=== PATIENT | male | born 1945 | race Two or more races ===

== ENCOUNTER 2018-04-03 00:13 | Inpatient (IN) | payer MEDICARE, MEDICAID ==
[~2018-04-03] VITALS: Ht 165.1 cm; Wt 97.5 kg
[2018-04-03] VITALS (7 sets, daily range): BP systolic 100–119; BP diastolic 58–75
--- NOTE | 2018-04-03 00:33 | NUR ---
73 yo male C/O Abd pain, difuse like non radiating. Patient ambulated to er bed,patient gowned, placed on cardiac cath technician. patient SPO2 is noted to be in the low 90's, MD Esquivel notified. patient skin warm and dry, resp even and unlabored. awaiting orders from provider
[2018-04-03 00:53] LABS: BASOPHILS % (AUTO) 0.2 % (0.0-2.0); EOSINOPHILS % (AUTO) 0.9 % (0.0-6.0); HEMATOCRIT 52 % (39-51); HEMOGLOBIN 17.5 g/dL (13.5-17.5); LYMPHOCYTES # (AUTO) 1.3 /CMM (0.8-4.8); LYMPHOCYTES % (AUTO) 16.2 % (20.0-44.0); MEAN CORPUSCULAR HEMOGLOBIN 32 PG (26.0-33.0); MEAN CORPUSCULAR HGB CONC 34 g/dl (31.0-36.0); MEAN CORPUSCULAR VOLUME 94 fL (80-96); MONOCYTES # (AUTO) 0.2 /CMM (0.1-1.30); MONOCYTES % (AUTO) 2.9 % (2.0-12.0); NEUTROPHILS # (AUTO) 6.3 /CMM (1.8-8.9); NEUTROPHILS % (AUTO) 79.8 % (43.0-81.0); PLATELET COUNT (AUTO) 145 /CMM (150-450); RDW COEFFICIENT OF VARIATION 13.4 (11.5-15.0); RED BLOOD CELL COUNT(AUTO) 5.53 MIL/uL (4.5-6.0); WHITE BLOOD COUNT (AUTO) 7.9 K/uL (4.3-11.0)
[2018-04-03 01:03] LABS: CALCIUM, SERUM 8.8 mg/dL (8.5-10.1); CARBON DIOXIDE 33 mmol/L (21-32); CHLORIDE 97 mmol/L (98-107); GLUCOSE 278 mg/dL (74-106); POTASSIUM 3.8 mmol/L (3.5-5.1); SODIUM SERUM 134 mmol/L (136-145); UREA NITROGEN, BLOOD 23 mg/dL (7-18)
[2018-04-03 01:04] LABS: CALCIUM, SERUM 8.8 mg/dL (8.5-10.1); CARBON DIOXIDE 33 mmol/L (21-32); CHLORIDE 97 mmol/L (98-107); GLUCOSE 284 mg/dL (74-106); POTASSIUM 3.8 mmol/L (3.5-5.1); SODIUM SERUM 137 mmol/L (136-145); UREA NITROGEN, BLOOD 21 mg/dL (7-18)
[2018-04-03 01:10] LABS: ALANINE AMINOTRANSFERASE 27 U/L (12-78); ALBUMIN 3.5 g/dL (3.4-5.0); ALKALINE PHOSPHATASE 96 U/L (46-116); ASPARTATE AMINOTRANSFERASE 18 U/L (15-37); BILIRUBIN,DIRECT 0.1 mg/dL (0.0-0.2); BILIRUBIN,TOTAL 0.6 mg/dL (0.2-1.0); LIPASE 197 U/L (73-393); TOTAL PROTEIN, SERUM 7.8 g/dL (6.4-8.2)
[2018-04-03 01:11] LABS: TROPONIN I < 0.017 ng/mL (0.00-0.056)
[2018-04-03 01:18] LABS: INR 1.02 (0.87-1.13)
--- NOTE | 2018-04-03 01:35 | NUR ---
TELE 304-2
[2018-04-03 02:14] LABS: APPEARANCE,URINE CLEAR (CLEAR); BILIRUBIN,URINE 1+ (NEGATIVE); BLOOD, URINE NEGATIVE Ery/uL (NEGATIVE); COLOR,URINE DARK YELLO (YELLOW); KETONES,URINE TRACE (NEGATIVE); LEUKOCYTE ESTERASE ,URINE NEGATIVE (NEGATIVE); NITRITE, URINE NEGATIVE (NEGATIVE); PROTEIN,URINE 1+ mg/dl (NEGATIVE); UGLUCOSE 2+ mg/dL (NEGATIVE); UROBILINOGEN,URINE 0.2 EU/dL (0.2)
[2018-04-03 02:20] LABS: BACTERIA,URINE Few /HPF (None Seen); RBC,URINE 0-2 /HPF (0-2); SQUAMOUS EPITHELIAL CELL,UR Rare /HPF (None Seen); WBC,URINE 0-2 /HPF (0-3)
[2018-04-03 02:21] LABS: MUCUS,URINE Moderate /LPF (None Seen)
--- NOTE | 2018-04-03 02:51 | NUR ---
report given to jessica grijalva for eliza
--- NOTE | 2018-04-03 03:15 | NUR ---
MS/SAFETY ATTENDANT ADMITTING NOTE Patient was admitted from the ED to our unit in stable condition. Vital signs were BP 119/75, HR 83 bpm, O2 Sat 97% on 4L O2 NC, and Temp 97.9 F. Initial physical assessment was completed. Patient was made comfortable in bed. Past medical history obtained. Patient is Farsi speaking but understands and speaks Mozambican well enough to have a conversation. Patient is AAOx4 and shows no signs of acute distress. Patient rates abdominal pain at 4/10, but states he is no longer nauseous. SL 18g IV is in the right AC intact and patent. Belongings List acknowledged and signed by patient. Patient was oriented to room and educated radiation control technician light. Patient has no immediate needs or concerns at this time. Will continue to monitor.
--- NOTE | 2018-04-03 03:30 | NUR ---
MS RN NOTE - Refused pictures Patient refused having pictures taken of his skin, despite explanation and education. Patient is fully oriented x4; he is Farsi-speaking but carries on a conversation in Maldivian well. Patient became slightly agitated and did not want pictures taken.
[2018-04-03] MEDS ORDERED: ASPI-1169 PO (03:39)
[2018-04-03] MEDS ORDERED: HYDROCODONE/APAP 5/325MG 1 EACH TABLET PO PRN (04:00)
[2018-04-03] MEDS ORDERED: ACETAMINOPHEN 325 MG TABLET PO PRN (04:00)
[2018-04-03] MEDS ORDERED: MAG HYDROX/AL HYDROX/SIMETH 30 ML UDC PO PRN (04:00)
[2018-04-03] MEDS ORDERED: Z GUARD REMEDY 2 OZ OINT TP PRN (04:00)
[2018-04-03] MEDS ORDERED: ONDANSETRON HCL/PF 4 MG/2 ML VIAL IVP PRN (04:00)
[2018-04-03] MEDS ORDERED: ZOLPIDEM TARTRATE 5 MG TABLET PO PRN (04:00)
[2018-04-03] MEDS: ENOXAPARIN SODIUM 40 MG/0.4 ML DISP.SYRIN SQ SCH (05:08)
[2018-04-03 06:56] LABS: CHOLESTEROL 199 mg/dL (<200); HDL CHOLESTEROL 34 mg/dL (40-60); LDL 121 mg/dL (0-99); TRIGLYCERIDES 279 mg/dL (30-150)
[2018-04-03 06:59] LABS: CALCIUM, SERUM 8.2 mg/dL (8.5-10.1); CARBON DIOXIDE 34 mmol/L (21-32); CHLORIDE 96 mmol/L (98-107); CREATININE 0.9 mg/dL (0.6-1.3); GLUCOSE 334 mg/dL (74-106); MAGNESIUM 1.8 mg/dL (1.8-2.4); POTASSIUM 4.4 mmol/L (3.5-5.1); SODIUM SERUM 136 mmol/L (136-145); UREA NITROGEN, BLOOD 24 mg/dL (7-18)
--- NOTE | 2018-04-03 07:05 | NUR ---
MS RN CLOSING NOTE Patient is AAOx4, breathing on 4L O2 NC with no SOB, and no signs of acute distress. Patient slept intermittently overnight but had no complications and remains in stable condition. Bed is low/locked, two side rails up, and call olmstead within reach. All patient needs addressed this shift and order carried out. Patient care endorsed to day shift nurse.
--- NOTE | 2018-04-03 07:10 | NUR ---
RN NOTES PT IS LAYING DOWN IN BED, SLEEPING COMFORTABLY. PT ON 4L O2, RESPIRATIONS ARE EVEN AND UNLABORED. IV ON RAC INTACT AND SL. TELE MONITOR SHOWS SR 74. NO SIGNS OF DISTRESS NOTED. SAFETY MEASURES ARE IN PLACE, CALL LIGHT IS IN REACH. WILL CONTINUE TO MONITOR.
[2018-04-03 08:41] LABS: ABG BASE EXCESS 5.8 mmol/L; ABG OXYGEN SATURATION 94.5 % (92.0-98.5); ABG PCO2 72.8 mmHg (35.0-45.0); ABG PH 7.304 (7.350-7.450); ABG PO2 79.5 mmHg (75.0-100.0); AaDO2 34.2 mmHg; COHb 1.3 % (0.5-1.5); MetHb 0.7 % (0.0-1.5); O2Hb 92.6 % (94.0-97.0); SITE, ABG Right Radial; VENT MODE, BG N/C
[2018-04-03] MEDS: FUROSEMIDE 40 MG/4 ML VIAL IV SCH ×2 (08:58→11:52)
[2018-04-03] MEDS: ASPIRIN 81 MG TAB.CHEW PO SCH (08:58)
[2018-04-03] MEDS ORDERED: DEXTROSE 50%-WATER 50 ML DISP.SYRIN IV PRN (09:30)
[2018-04-03 10:54] LABS: THYROID STIMULATING HORMONE 1.225 uIU/mL (0.358-3.74)
[2018-04-03] MEDS: BLOOD SUGAR DIAGNOSTIC 1 EACH STRIP IN SCH ×3 (11:52→21:29)
[2018-04-03] MEDS: INSULIN REGULAR, HUMAN 100 UNIT/ML 3 ML VIAL SQ PRN ×2 (11:56→21:43)
[2018-04-03] MEDS ORDERED: INSULIN REGULAR, HUMAN 100 UNIT/ML 3 ML VIAL SQ SCH (12:00)
[2018-04-03] MEDS ORDERED: BLOOD SUGAR DIAGNOSTIC 1 EACH STRIP IN SCH (12:00)
--- NOTE | 2018-04-03 13:57 | NUR ---
WOUND CARE CONSULT PATIENT SEEN AND SKIN INTEGRITY ASSESSMENT DONE. PLEASE SEE MANAGER SCIENTIFIC ASSESSMENT IN PCS. PATIENT WITH VALORIE OF 20. ALL PRESSURE ULCER PREVENTION MEASURES NOTED TO BE IN PLACE PER PLAN OF CARE. WILL SEE PATIENT PRN. Addendum: 04/03/18 at 1403 by ZEYNEP SHEFFIELD RN Amended: Links added.
[2018-04-03] MEDS ORDERED: FLUOCINONIDE 0.05% CREAM 60 GM TUBE TP SCH (17:30)
[2018-04-03] MEDS ORDERED: FLUOCINONIDE 0.05% CREAM 15 GM TUBE TP SCH (17:30)
[2018-04-03] MEDS ORDERED: diphenhydrAMINE HCL ELIX 25 MG/10 ML UDC PO PRN (18:00)
--- NOTE | 2018-04-03 18:42 | NUR ---
RN NOTES PT IS LAYING DOWN IN BED, AWAKE AND ALERT. PT ON RA, RESPIRATIONS ARE EVEN AND UNLABORED. IV ON RAC INTACT AND SL. PT WILL SWITCH TO ROOM 323-1 FOR COMFORT. CARDIOPULMONARY TECHNOLOGIST SHOWS SR. ALL MEDS WERE GIVEN ORDERED. NO SIGNS OF DISTRESS NOTED. SAFETY MEASURES ARE IN PLACE, CALL LIGHT IS IN REACH. WILL ENDORSE TO TEST PULLER RN FOR CONTINUITY OF CARE.
--- NOTE | 2018-04-03 19:04 | NUR ---
Met with patient, he speaks Farsi and Uzbek. Stated he lives alone. He has a son and relatives but patient refused to provide their contact info. He is ambulatory and independent with adl's, he drove himself to the hospital and parked his car by the ER . Has no DME or homehealth reported. He plan to return home once discharge. Addendum: 04/03/18 at 1906 by CHANDRA ERIC RN Amended: Links added.
--- NOTE | 2018-04-03 19:20 | NUR ---
RN OPENING NOTES RECEIVED PATIENT IN BED, ALERT AND ORIENTED X 3, RECEIVING O2 VIA NC @4LPM, NO SOB NOTED, BREATHING EVEN AND UNLABORED, IN NO ACUTE DISTRESS. PT VERBALIZED THAT HE IS HAVING HEARTBURN AND DISCOMFORT IN THE EPIGASTRIC AREA. DENIES CHEST PAIN, DENIES NAUSEA AT THIS TIME. ALL PATIENT'S NEEDS ATTENDED TO AT THIS TIME, PLACED BED IN LOW POSITION, CALL LIGHT WITHIN EASY REACH. WILL CONTINUE TO MONITOR PT. Addendum: 04/03/18 at 1951 by ROBBIN LOPEZ RN PT ON TELE MONITORING WITH SR @ 70-80s AT THIS TIME.
[2018-04-03] MEDS ORDERED: ATORVASTATIN 40 MG TABLET PO SCH (22:00)
[2018-04-04] VITALS: BP 100/62
[2018-04-04 04:00] VITALS: BP 112/67
[2018-04-04 06:37] LABS: BASOPHILS % (AUTO) 0.1 % (0.0-2.0); EOSINOPHILS % (AUTO) 2.7 % (0.0-6.0); HEMATOCRIT 50 % (39-51); HEMOGLOBIN 17.1 g/dL (13.5-17.5); LYMPHOCYTES # (AUTO) 2.7 /CMM (0.8-4.8); LYMPHOCYTES % (AUTO) 30.6 % (20.0-44.0); MEAN CORPUSCULAR HEMOGLOBIN 32 PG (26.0-33.0); MEAN CORPUSCULAR HGB CONC 34 g/dl (31.0-36.0); MEAN CORPUSCULAR VOLUME 94 fL (80-96); MONOCYTES # (AUTO) 0.8 /CMM (0.1-1.30); MONOCYTES % (AUTO) 9.3 % (2.0-12.0); NEUTROPHILS # (AUTO) 5.1 /CMM (1.8-8.9); NEUTROPHILS % (AUTO) 57.3 % (43.0-81.0); PLATELET COUNT (AUTO) 152 /CMM (150-450); RDW COEFFICIENT OF VARIATION 13.3 (11.5-15.0); RED BLOOD CELL COUNT(AUTO) 5.38 MIL/uL (4.5-6.0); WHITE BLOOD COUNT (AUTO) 8.9 K/uL (4.3-11.0)
[2018-04-04] MEDS: BLOOD SUGAR DIAGNOSTIC 1 EACH STRIP IN SCH (06:38)
[2018-04-04] MEDS: INSULIN REGULAR, HUMAN 100 UNIT/ML 3 ML VIAL SQ PRN (06:41)
--- NOTE | 2018-04-04 06:54 | NUR ---
BINDERY TECHNICIAN CLOSING NOTES PATIENT IN BED, ASLEEP BUT EASILY AROUSABLE, NO SOB NOTED THROUGHOUT THE SHIFT. NO C/O PAIN AT THIS TIME, NO EPISODE OF N/V NOTED. ALL PATIENT'S NEEDS ATTENDED TO. PT ABLE TO AMBULATE TO BATHROOM WITH STEADY GATE. PLACED BED IN LOW POSITION, LOCKED IN PLACE AND CALL LIGHT PLACED WITHIN EASY REACH. PT ON TELE MONITORING AT SINUS RHYTHM. WILL ENDORSE TO AM SHIFT NURSE FOR CONTINUITY OF CARE.
[2018-04-04 07:07] LABS: ALANINE AMINOTRANSFERASE 29 U/L (12-78); ALBUMIN 3.4 g/dL (3.4-5.0); ALKALINE PHOSPHATASE 90 U/L (46-116); ASPARTATE AMINOTRANSFERASE 20 U/L (15-37); BILIRUBIN,TOTAL 0.6 mg/dL (0.2-1.0); CALCIUM, SERUM 8.6 mg/dL (8.5-10.1); CHLORIDE 94 mmol/L (98-107); CREATININE 0.9 mg/dL (0.6-1.3); GLUCOSE 230 mg/dL (74-106); PHOSPHORUS 4.2 mg/dL (2.5-4.9); POTASSIUM 3.7 mmol/L (3.5-5.1); SODIUM SERUM 134 mmol/L (136-145); TOTAL PROTEIN, SERUM 7.7 g/dL (6.4-8.2); UREA NITROGEN, BLOOD 24 mg/dL (7-18)
[2018-04-04 07:11] LABS: CARBON DIOXIDE 42 mmol/L (21-32)
--- NOTE | 2018-04-04 07:14 | NUR ---
RN NOTES RECEIVED CALL FROM LAB, SPOKE WITH KARON, PER KARON PTS' CO2 = 42. PAGED HOSPITALIST. WILL ENDORSE TO AM SHIFT NURSE.
[2018-04-04 07:19] LABS: TROPONIN I < 0.017 ng/mL (0.00-0.056)
--- NOTE | 2018-04-04 07:52 | NUR ---
GLOBAL COORDINATOR OPENING NOTE RECEIVED BEDSIDE SBAR REPORT ON THE PATIENT. PATIENT IS A/O X4, ASLEEP, EASILY AWAKEN IN BED. BED IS LOCKED IN LOWEST POSITION, SIDE RAILS UP X2, CALL LIGHT WITHIN REACH. EDUCATED THE PATIENT TO USE THE CALL LIGHT TO CALL FOR ASSISTANCE, AND PATIENT VERBALIZED UNDERSTANDING. DENIES PAIN/DISCOMFORT AT THIS TIME. CHEST RISING EQUALLY/BILATERALLY. EXTERNAL MONITOR READING SB 56. WILL CONTINUE TO ASSESS/MONITOR THROUGHOUT THE SHIFT.
[2018-04-04 08:00] VITALS: BP 116/51
[2018-04-04] MEDS ORDERED: LOSARTAN POTASSIUM 50 MG TABLET PO SCH (09:00)
[2018-04-04 09:40] VITALS: BP 116/51
[2018-04-04] MEDS: ASPIRIN 81 MG TAB.CHEW PO SCH (09:40)
[2018-04-04] MEDS: ENOXAPARIN SODIUM 40 MG/0.4 ML DISP.SYRIN SQ SCH (09:42)
--- NOTE | 2018-04-04 10:51 | NUR ---
SBAR report given to Dariusz ROBINS for [place]
--- NOTE | 2018-04-04 11:00 | NUR ---
RN NOTES PATIENT A/OX3, PATIENT UNCOOPERATIVE AND KEPT SAYING HE WANTS TO GO HOME, EXPLAINED TO THE PATIENT TO WAIT FOR THE DOCTOR TO EXAMINE HIM AND TO DETERMINE IF HE'S SAFE TO GO HOME. BUT PATIENT INSISTED ON LEAVING.
--- NOTE | 2018-04-04 11:15 | NUR ---
RN NOTES JOSEPH ROY MADE AWARE OF PATIENT'S DECISION TO LEAVE AMA. PER CHIEF LIBRARIAN CIRCULATION DEPARTMENT, "OK THAT'S HIS RIGHT"
--- NOTE | 2018-04-04 11:45 | NUR ---
RN LEAVING AMA PATIENT SIGNED AMA FORM, EXPLAINED RISKS AND CONSEQUENCES INVOLVED IN LEAVING THE HOSPITAL AT THIS TIME, EXIT CARE PROVIDED AND PATIENT SIGNED PAPERWORKS. PER PATIENT, "PLS TELL THE DOCTOR I HAVE TO GO TO WORK, I CANT SAY IM IN THE HOSPITAL." PATIENT REFUSING ANY PHOTOS AT THIS TIME. PIV REMOVED, COVERED WITH GAUZE AND TAPE, BELONGINGS RECONCILED AND COMPLETE. PATIENT LEFT THE FACILITY AGAINST MEDICAL ADVICE.
== END 2018-04-04 11:45 | disposition left against medical advice (07) | DRG 291 ==
LOC: ER 00:18 → TELE 03:14 → MED 04-04 08:23
PROVIDERS: ADMIT Nurse Practitioner Acute Care; ATTEND Nurse Practitioner Acute Care
DX: I11.0 Hypertensive heart disease with heart failure (principal); J96.01 Acute respiratory failure with hypoxia; E87.1 Hypo-osmolality and hyponatremia; E66.2 Morbid (severe) obesity with alveolar hypoventilation; I50.33 Acute on chronic diastolic (congestive) heart failure; Z95.5 Presence of coronary angioplasty implant and graft; Z87.891 Personal history of nicotine dependence; Z86.73 Personal history of transient ischemic attack (TIA), and cerebral infarction without residual deficits; I25.10 Atherosclerotic heart disease of native coronary artery without angina pectoris; E11.65 Type 2 diabetes mellitus with hyperglycemia; B34.9 Viral infection, unspecified; E78.5 Hyperlipidemia, unspecified; K57.30 Diverticulosis of large intestine without perforation or abscess without bleeding; Z68.35 Body mass index [BMI] 35.0-35.9, adult; D75.1 Secondary polycythemia; Z83.3 Family history of diabetes mellitus; Z79.82 Long term (current) use of aspirin
CPT/HCPCS: 36415; 36600; 71045-TC; 80048-TC; 80053-TC; 80061-TC; 80076-TC; 81000-TC; 82306; 82803-TC; 82962-TC; 83605-TC; 83690-TC; 83735-TC; 83880; 84100-TC; 84439-TC; 84443-TC; 84484-TC; 85025-TC; 85730-TC; 87040-TC; 87081-TC; 93307-TC; A4606; J1650; J1815; J1940; J7040; Q0163; Z7610

== ENCOUNTER 2018-05-18 18:50 | Emergency (ER) | payer MEDICARE, MEDICAID ==
[~2018-05-18] VITALS: Ht 165.1 cm; Wt 90.7 kg
[~2018-05-18 18:50] MED LIST: ASPI-1169 PO
--- NOTE | 2018-05-18 19:07 | NUR ---
RADIOLOGIST AT BEDSIDE
[2018-05-18] MEDS ORDERED: FUROSEMIDE 40 MG/4 ML VIAL ONE (19:08)
[2018-05-18] MEDS ORDERED: NITROGLYCERIN PACKET 1 GM PACKET ONE (19:09)
[2018-05-18] MEDS ORDERED: ASPIRIN 325 MG TABLET ONE (19:09)
--- NOTE | 2018-05-18 19:10 | NUR ---
PT BIBRA FOR SOB, COUGH, CONGESTION X2 WKS. PT AAOX4. RESPIRATIONS EVEN AND UNLABORED. NO ACUTE DISTRESS NOTED. PT DENIES NVD. PT PLACED ON OXYGEN AND MONITOR. IV INITIATED ON RIGHT HAND 18G. LABS DRAWN AND UPSTAIRS MAID AT BEDSIDE FOR COLLECTION. PT MEDICATED PER MD ORDER.
[2018-05-18] MEDS: NITROGLYCERIN PACKET 1 GM PACKET TD ONE (19:18)
[2018-05-18] MEDS: FUROSEMIDE 40 MG/4 ML VIAL IV ONE (19:28)
[2018-05-18 19:29] LABS: BASOPHILS # (AUTO) 0.1 /CMM (0.0-0.2); BASOPHILS % (AUTO) 0.9 % (0.0-2.0); EOSINOPHILS % (AUTO) 3.3 % (0.0-6.0); HEMATOCRIT 46 % (39-51); HEMOGLOBIN 15.6 g/dL (13.5-17.5); LYMPHOCYTES # (AUTO) 2.1 /CMM (0.8-4.8); LYMPHOCYTES % (AUTO) 24.8 % (20.0-44.0); MEAN CORPUSCULAR HEMOGLOBIN 31 PG (26.0-33.0); MEAN CORPUSCULAR HGB CONC 34 g/dl (31.0-36.0); MEAN CORPUSCULAR VOLUME 93 fL (80-96); MONOCYTES # (AUTO) 0.6 /CMM (0.1-1.30); MONOCYTES % (AUTO) 7.7 % (2.0-12.0); NEUTROPHILS # (AUTO) 5.2 /CMM (1.8-8.9); NEUTROPHILS % (AUTO) 63.3 % (43.0-81.0); PLATELET COUNT (AUTO) 181 /CMM (150-450); RDW COEFFICIENT OF VARIATION 12.1 (11.5-15.0); RED BLOOD CELL COUNT(AUTO) 4.99 MIL/uL (4.5-6.0); WHITE BLOOD COUNT (AUTO) 8.3 K/uL (4.3-11.0)
[2018-05-18] MEDS: ASPIRIN 325 MG TABLET PO ONE (19:29)
[2018-05-18 19:39] LABS: CALCIUM, SERUM 8.2 mg/dL (8.5-10.1); CARBON DIOXIDE 38 mmol/L (21-32); CHLORIDE 96 mmol/L (98-107); CREATININE 1.1 mg/dL (0.6-1.3); GLUCOSE 335 mg/dL (74-106); SODIUM SERUM 131 mmol/L (136-145); UREA NITROGEN, BLOOD 12 mg/dL (7-18)
[2018-05-18 19:48] LABS: TROPONIN I < 0.017 ng/mL (0.00-0.056)
[2018-05-18 19:52] LABS: ALANINE AMINOTRANSFERASE 27 U/L (12-78); ALBUMIN 3.3 g/dL (3.4-5.0); ALKALINE PHOSPHATASE 99 U/L (46-116); ASPARTATE AMINOTRANSFERASE 27 U/L (15-37); B-TYPE NATRIURETIC PEPTIDE 63 PG/ML (0-125); BILIRUBIN,DIRECT 0.1 mg/dL (0.0-0.2); BILIRUBIN,TOTAL 0.4 mg/dL (0.2-1.0); TOTAL PROTEIN, SERUM 7.2 g/dL (6.4-8.2)
--- NOTE | 2018-05-18 19:55 | NUR ---
PATIENT ASSIGNED TO TELE 323-1 DX CP ADMITTING DELPHINE HARDEN
--- NOTE | 2018-05-18 20:18 | NUR ---
GAVE REPORT TO STEFAN ROBINS FOR [place]
--- NOTE | 2018-05-18 20:45 | NUR ---
PT LEAVING AMA. RISKS AND BENEFITS EXPLAINED, INFORMED TO RETURN FOR WORSENING SYMPTOMS PT VERBALIZED UNDERSTANDING. IV removed. Catheter intact and site benign. Pressure and 4x4 applied to site. No bleeding noted.
[2018-05-18 20:48] VITALS: BP 119/72
== END 2018-05-18 20:49 | disposition left against medical advice (07) ==
LOC: ER 18:56 → TELE 20:10 → UNDOADMIN 20:10
DX: I11.0 Hypertensive heart disease with heart failure (principal); I50.9 Heart failure, unspecified; R09.02 Hypoxemia; R21 Rash and other nonspecific skin eruption; R60.0 Localized edema; E11.9 Type 2 diabetes mellitus without complications; I25.10 Atherosclerotic heart disease of native coronary artery without angina pectoris; Z60.2 Problems related to living alone; Z86.73 Personal history of transient ischemic attack (TIA), and cerebral infarction without residual deficits; Z79.82 Long term (current) use of aspirin; Z95.818 Presence of other cardiac implants and grafts
CPT/HCPCS: 36415; 71045-TC; 80048-TC; 80076-TC; 83605-TC; 83880; 84484-TC; 85025-TC; 85730-TC; 87040-TC; A4606; J1940; Z7610

== ENCOUNTER 2019-11-11 02:34 | Emergency (ER) | payer OTHER, MEDICAID ==
[~2019-11-11] VITALS: Ht 165.1 cm; Wt 94.8 kg
[~2019-11-11 02:34] MED LIST changes: +ATOR10TA PO; +LOSA50TA3 PO; +METF-440 PO; +PRED50TA PO; +RIVA10TA PO
--- NOTE | 2019-11-11 03:00 | NUR ---
Pt BIBSELF FROM HOME C/O GENERALIZED RASH WITH REDNESS & ITCHINESS ALL OVER BODY FOR THE PAST WEEK. Pt IS A/OX3, VERBAL, ABLE TO MAKE NEEDS KNOWN, FARSI SPEAKING. NO S/S OF ACUTE DISTRESS OR SOB NOTED. Pt BEING SEEN BY MD AT BEDSIDE. VS STABLE.
[2019-11-11] MEDS ORDERED: diphenhydrAMINE HCL 50 MG/ML VIAL ONE (03:22)
[2019-11-11] MEDS ORDERED: predniSONE 10 MG TABLET ONE (03:22)
[2019-11-11] MEDS ORDERED: predniSONE 20 MG TABLET ONE (03:23)
[2019-11-11 03:27] LABS: BASOPHILS # (AUTO) 0.1 /CMM (0.0-0.2); BASOPHILS % (AUTO) 0.7 % (0.0-2.0); HEMATOCRIT 41 % (39-51); LYMPHOCYTES # (AUTO) 2.5 /CMM (0.8-4.8); LYMPHOCYTES % (AUTO) 27.2 % (20.0-44.0); MEAN CORPUSCULAR HGB CONC 34 g/dl (31.0-36.0); MEAN CORPUSCULAR VOLUME 91 fL (80-96); MONOCYTES # (AUTO) 0.7 /CMM (0.1-1.30); MONOCYTES % (AUTO) 8.1 % (2.0-12.0); NEUTROPHILS # (AUTO) 5.6 /CMM (1.8-8.9); PLATELET COUNT (AUTO) 151 /CMM (150-450); RED BLOOD CELL COUNT(AUTO) 4.55 MIL/uL (4.5-6.0); WHITE BLOOD COUNT (AUTO) 9.2 K/uL (4.3-11.0)
[2019-11-11] MEDS ORDERED: LIDOCAINE 2% JEL UROJET 10 ML MM ONE ×2 (03:28→03:30)
[2019-11-11] MEDS ORDERED: diphenhydrAMINE HCL 50 MG/ML VIAL IM ONE (03:30)
[2019-11-11] MEDS ORDERED: predniSONE 50 MG TABLET PO ONE (03:30)
[2019-11-11 03:37] LABS: CALCIUM, SERUM 8.9 mg/dL (8.5-10.1); CREATININE 0.9 mg/dL (0.6-1.3); POTASSIUM 4.3 mmol/L (3.5-5.1)
[2019-11-11 03:42] LABS: ALBUMIN 3.6 g/dL (3.4-5.0); BILIRUBIN,DIRECT 0.1 mg/dL (0.0-0.2); BILIRUBIN,TOTAL 0.4 mg/dL (0.2-1.0); TOTAL PROTEIN, SERUM 7.3 g/dL (6.4-8.2)
[2019-11-11 04:14] LABS: APPEARANCE,URINE Slightly Cloudy (CLEAR); BILIRUBIN,URINE Negative (NEGATIVE); BLOOD, URINE Moderate Ery/uL (NEGATIVE); COLOR,URINE Yellow (YELLOW); KETONES,URINE Negative (NEGATIVE); LEUKOCYTE ESTERASE ,URINE Small (NEGATIVE); NITRITE, URINE Negative (NEGATIVE); PH,URINE 6.5 (5.0-8.0); PROTEIN,URINE Negative (NEGATIVE); UGLUCOSE Negative (NEGATIVE); UROBILINOGEN,URINE 0.2 EU/dL (0.2)
--- NOTE | 2019-11-11 04:20 | NUR ---
MICHAUD CATHETER INSERTED. URINE COLLECTED AND SENT TO LAB.
--- NOTE | 2019-11-11 04:20 | NUR ---
ALL ORDERED MEDS GIVEN. ADMINISTERD BENADRYL 50ML IM VIA LT DELTOID.
[2019-11-11 04:31] LABS: BACTERIA,URINE Few /HPF (None Seen); SQUAMOUS EPITHELIAL CELL,UR Rare /HPF (None Seen); WBC,URINE TOO NUMEROUS TO COUN /HPF (0-3)
[2019-11-11] MEDS ORDERED: NITROFURANTOIN/NITROFURAN MAC 100 MG CAPSULE PO ONE (05:00)
--- NOTE | 2019-11-11 05:37 | NUR ---
Pt HAS NO CLOSE RELATIVES OR FRIENDS WHO LIVE NEAR BY AND CANNOT PICK HIM UP FROM THE ER. Pt DROVE HIS OWN CAR. Pt IS STILL FEELING DROWSY FROM THE BENADRYL AND IS UNABLE TO DRIVE AT THIS TIME. ER SAID IT IS OK FOR THE Pt TO STAY IN THE ER UNTIL Pt IS ABLE TO LEAVE. WILL CONTINUE TO MONITOR Pt.
[2019-11-11] MEDS ORDERED: NITROFURANTOIN/NITROFURAN MAC 100 MG CAPSULE ONE (05:43)
--- NOTE | 2019-11-11 07:41 | NUR ---
ENDORSED TO DAYSHIFT FRUIT GROWERJULIENNE GONZALES FOR Pt's [place]. Pt IS COMFORTABLY ASLEEP IN BED. NO S/S OF ACUTE DISTRESS OF SOB NOTED. INFORED RN THAT DR HUGGINS SAID IT IS OK FOR THE Pt TO STAY IN THE ER UNTIL Pt IS READY TO LEAVE ON HIS OWN.
--- NOTE | 2019-11-11 07:43 | NUR ---
PATIENT REMAINS STABLE AND ASLEEP . NOTED WITH F/C REMOVED 800ML PINK-TINGED COLOR. VSS ARE STABLE
[2019-11-11 11:53] VITALS: BP 122/70
--- NOTE | 2019-11-11 11:53 | NUR ---
Patient discharged to home in stable condition. Written and verbal after care instructions given. Patient verbalizes understanding of instruction.
== END 2019-11-11 11:54 | disposition home or self-care (01) ==
LOC: ER 02:35
DX: R33.9 Retention of urine, unspecified (principal); N30.90 Cystitis, unspecified without hematuria; L30.9 Dermatitis, unspecified; L29.9 Pruritus, unspecified; E11.9 Type 2 diabetes mellitus without complications; I11.0 Hypertensive heart disease with heart failure; I50.9 Heart failure, unspecified; Z95.5 Presence of coronary angioplasty implant and graft; Z60.2 Problems related to living alone; Z86.73 Personal history of transient ischemic attack (TIA), and cerebral infarction without residual deficits; Z79.82 Long term (current) use of aspirin; Z79.899 Other long term (current) drug therapy
CPT/HCPCS: 36415; 51702; 80048; 80076; 81001; 85025; 85730; 87086; 96372; 99285; J1200; J3490; J7512 ×2; 81000-TC; 87186-TC

== ENCOUNTER 2019-11-14 14:10 | Inpatient (IN) | payer MEDICARE, MEDICAID ==
[~2019-11-14] VITALS: Ht 165.1 cm; Wt 89.8 kg
--- NOTE | 2019-11-14 15:07 | NUR ---
PT REC'D TO ER C/O SOB 94% RA AWAITING EVALUATION BY ER PROVIDER.
[2019-11-14 16:51] LABS: BASOPHILS # (AUTO) 0.1 /CMM (0.0-0.2); BASOPHILS % (AUTO) 0.7 % (0.0-2.0); EOSINOPHILS % (AUTO) 3.4 % (0.0-6.0); HEMATOCRIT 45 % (39-51); HEMOGLOBIN 15.3 g/dL (13.5-17.5); LYMPHOCYTES # (AUTO) 2.4 /CMM (0.8-4.8); LYMPHOCYTES % (AUTO) 29.2 % (20.0-44.0); MEAN CORPUSCULAR HGB CONC 34 g/dl (31.0-36.0); MEAN CORPUSCULAR VOLUME 91 fL (80-96); MONOCYTES # (AUTO) 0.7 /CMM (0.1-1.30); MONOCYTES % (AUTO) 8.3 % (2.0-12.0); NEUTROPHILS # (AUTO) 4.8 /CMM (1.8-8.9); NEUTROPHILS % (AUTO) 58.4 % (43.0-81.0); PLATELET COUNT (AUTO) 162 /CMM (150-450); RED BLOOD CELL COUNT(AUTO) 4.89 MIL/uL (4.5-6.0); WHITE BLOOD COUNT (AUTO) 8.2 K/uL (4.3-11.0)
[2019-11-14 17:05] LABS: ALANINE AMINOTRANSFERASE 12 U/L (12-78); ALBUMIN 3.8 g/dL (3.4-5.0); ALKALINE PHOSPHATASE 88 U/L (46-116); ASPARTATE AMINOTRANSFERASE 13 U/L (15-37); BILIRUBIN,DIRECT 0.1 mg/dL (0.0-0.2); BILIRUBIN,TOTAL 0.5 mg/dL (0.2-1.0); CALCIUM, SERUM 9.1 mg/dL (8.5-10.1); CARBON DIOXIDE 37 mmol/L (21-32); CHLORIDE 97 mmol/L (98-107); CREATININE 0.7 mg/dL (0.6-1.3); GLUCOSE 226 mg/dL (74-106); POTASSIUM 4.4 mmol/L (3.5-5.1); SODIUM SERUM 135 mmol/L (136-145); TOTAL PROTEIN, SERUM 7.7 g/dL (6.4-8.2); UREA NITROGEN, BLOOD 13 mg/dL (7-18)
[2019-11-14] MEDS ORDERED: NITR100C6 PO (18:12)
[2019-11-14] MEDS ORDERED: TAMS-12 PO (18:12)
[2019-11-14] MEDS ORDERED: DIPH50CA4 PO (18:12)
--- NOTE | 2019-11-14 18:14 | NUR ---
GAVE MOVESHEET TO ADMITTING TO CHECK INSURANCE AUTH
[2019-11-14] MEDS ORDERED: FUROSEMIDE 40 MG/4 ML VIAL IV ONE (18:30)
[2019-11-14] MEDS ORDERED: FUROSEMIDE 40 MG/4 ML VIAL ONE (19:37)
[2019-11-14] MEDS ORDERED: ACETAMINOPHEN 325 MG TABLET PO PRN (20:30)
[2019-11-14] MEDS ORDERED: ONDANSETRON HCL/PF 4 MG/2 ML VIAL IVP PRN (20:30)
[2019-11-14] MEDS ORDERED: Z GUARD REMEDY 2 OZ OINT TP PRN (20:30)
[2019-11-14] MEDS ORDERED: MAGNESIUM HYDROXIDE 30 ML UDC PO PRN (20:30)
--- NOTE | 2019-11-14 20:39 | NUR ---
REPORT GIVEN TO ANTOINE ROBINS FOR [place]
--- NOTE | 2019-11-14 21:20 | NUR ---
BRIM AND CROWN PRESSER ADMITTING NOTES ADMITTED MR SCOTT FROM,, ER WITH CC OF SOB,WITH ,DX ,R/O, CHF PT IS A/0 X3 FARSI AND YAKUT SPEAKING ON O2 VIA NC @ 3L O2 SAT @ 98% NO COMPLAINT OF PAIN PARAG, SAFELY TRANSFER FROM [facility] TO BED, HEAD TO TOE ASSESSMENT DONE SKIN IS INTACT, HAVE MICHAUD CATHETER WITH YELLOW COLOR URINE FLOWING,HAVE G20 IV ON R ARM PATENT AND FLUSHED NO INFILTRATION NOTED, SNACKS GIVEN PT ABLE TO EAT TOLERATED WELL, ADMISSION ASSESSMENT DONE, V/S, CHECKED WNL, ,PUT TO TELE MONITOR WITH READING SR 80'S SAFETY MEASURE INITIATED BED ON LOWEST POSITION, AND LOCK SIDE RAILS UP X2 CALL LIGHT WITHIN REACH WILL CONT TO MONITOR THE PT
[2019-11-14 21:30] VITALS: BP 123/75
[2019-11-14 22:15] VITALS: BP 123/78
[2019-11-14] MEDS: HYDROCODONE/APAP 5/325MG 1 EACH TABLET PO PRN (23:04)
--- NOTE | 2019-11-14 23:34 | NUR ---
FUNERAL DIRECTOR/EMBALMER NOTES PT COMPLAINT OF GENERALIZED ITCHINESS REPORTED TO DR. VALENZUELA AND INFORM HIM THAT I GIVE NORCO @ 2300 D/T PT PAIN AND PT ATE EGG SANDWICH AND PEANUT BUTTER SANDWICH @ 2100, DR. VALENZUELA MADE AN ORDER FOR BENADRYL 25MG PO Q6 PRN FOR ITCHINESS NOTED AND CARRIED OUT
[2019-11-14] MEDS: diphenhydrAMINE HCL 25 MG CAPSULE PO PRN (23:55)
[2019-11-15] VITALS: BP 98/51
--- NOTE | 2019-11-15 00:15 | NUR ---
SOCIAL STAFF WORKER NOTES REPORTED TO DR. VALENZUELA ABOUT THE CONCERN OF THE PT REGARDING THE ANTIBIOTIC THAT HE IS TAKING AT HOME AND HE SAID HE WANTS TO TAKE IT, DR. VALENZUELA REPLY AND SAYS THAT WE WILL HOLD THE ANTI BIOTIC FOR NOW AND WE WILL CHECKED THE UA OF THE PATIENT FIRST, PT MADE AWARE AND AGREED
[2019-11-15] MEDS: HYDROCODONE/APAP 5/325MG 1 EACH TABLET PO PRN ×2 (00:18→19:53)
[2019-11-15] MEDS: methylPREDNISolone SOD SUCC 125 MG/2ML VIAL IV SCH ×4 (01:28→19:48)
[2019-11-15] MEDS ORDERED: diphenhydrAMINE HCL 50 MG CAPSULE PO PRN (01:30)
[2019-11-15 04:00] VITALS: BP 130/73
[2019-11-15 06:45] LABS: BASOPHILS % (AUTO) 0.2 % (0.0-2.0); EOSINOPHILS % (AUTO) 0.3 % (0.0-6.0); HEMATOCRIT 43 % (39-51); HEMOGLOBIN 14.7 g/dL (13.5-17.5); LYMPHOCYTES # (AUTO) 0.9 /CMM (0.8-4.8); LYMPHOCYTES % (AUTO) 10.9 % (20.0-44.0); MEAN CORPUSCULAR HGB CONC 34 g/dl (31.0-36.0); MEAN CORPUSCULAR VOLUME 91 fL (80-96); MONOCYTES # (AUTO) 0.1 /CMM (0.1-1.30); MONOCYTES % (AUTO) 1.6 % (2.0-12.0); NEUTROPHILS # (AUTO) 7.6 /CMM (1.8-8.9); PLATELET COUNT (AUTO) 143 /CMM (150-450); RED BLOOD CELL COUNT(AUTO) 4.73 MIL/uL (4.5-6.0); WHITE BLOOD COUNT (AUTO) 8.7 K/uL (4.3-11.0)
--- NOTE | 2019-11-15 07:00 | NUR ---
SPANISH SPEAKING NANNY NOTES PATIENT A/O X4 . PATIENT IS ALERT ,ORIENTED AND COOPERATIVE WITH CARE .PATIENT IS ON O2 VIA NC @ 3L PATIENT SATURATING AT 95> NO SON, NO PAIN , NO ACUTE RESPIRATORY DISTRESS. PATIENT SKIN IS INTACT PATIENT HAS MICHAUD CATH YELLOW COLOR UYRINE . PATIENT HAS G20 IV ON R ARM PATIENT AND INTACT. NO SIGNS OF INFIKLTRATION. ON EXTERNAL MONITOR SR. NO SIGNS OF DISTRESS. BED LOCKED AND LOWEST POSITION CALL LIGHT WITH IN REACH ALL SAFETY MEASURE IMPLEMENTED PER HOSPITAL POLICY
[2019-11-15 07:01] LABS: CALCIUM, SERUM 9.1 mg/dL (8.5-10.1); CREATININE 0.9 mg/dL (0.6-1.3); PHOSPHORUS 4.3 mg/dL (2.5-4.9); POTASSIUM 4.4 mmol/L (3.5-5.1)
--- NOTE | 2019-11-15 07:27 | NUR ---
RN CLOSING NOTES PT ON GOOD CONDITION NO SIGN AND SYMPTOMS OF RESPIRATORY DISTRESS, NO PAIN NOTED, PT STILL ON TELE WITH READING SR 80'S PT IS A/O X 3 FARSI SPEAKING, WITH IV G20 @ RHAND PATENT AND FLUSHING, SAFETY MEASURE MAINTAINED BED ON LOWEST POSITION, AND LOCK SIDE RAILS UP X2 CALL LIGHT WITHIN REACH ENDORSE TO AM SHIFT NURSE
[2019-11-15 08:00] VITALS: BP 124/72
[2019-11-15] MEDS ORDERED: NITROFURANTOIN/NITROFURAN MAC 100 MG CAPSULE PO SCH (09:00)
[2019-11-15] MEDS: TAMSULOSIN 0.4 MG CAP.SR.24H PO SCH (09:50)
[2019-11-15] MEDS: FUROSEMIDE 40 MG/4 ML VIAL IV SCH ×2 (09:50→17:10)
[2019-11-15] MEDS ORDERED: DEXTROSE 50%-WATER 50 ML DISP.SYRIN IV PRN (10:00)
[2019-11-15 11:35] LABS: APPEARANCE,URINE CLEAR (CLEAR); BILIRUBIN,URINE NEGATIVE (NEGATIVE); BLOOD, URINE MODERATE Ery/uL (NEGATIVE); COLOR,URINE YELLOW (YELLOW); KETONES,URINE NEGATIVE (NEGATIVE); LEUKOCYTE ESTERASE ,URINE NEGATIVE (NEGATIVE); NITRITE, URINE NEGATIVE (NEGATIVE); PH,URINE 5.5 (5.0-8.0); PROTEIN,URINE TRACE mg/dl (NEGATIVE); UGLUCOSE NEGATIVE (NEGATIVE); UROBILINOGEN,URINE 0.2 EU/dL (0.2)
[2019-11-15 12:00] VITALS: BP 117/61
[2019-11-15 12:18] LABS: BACTERIA,URINE Rare /HPF (None Seen); SQUAMOUS EPITHELIAL CELL,UR Rare /HPF (None Seen)
[2019-11-15] MEDS: BLOOD SUGAR DIAGNOSTIC 1 EACH STRIP IN SCH ×3 (12:50→21:28)
[2019-11-15] MEDS: INSULIN REGULAR, HUMAN 100 UNIT/ML 3 ML VIAL SQ PRN ×3 (13:29→21:31)
[2019-11-15 16:00] VITALS: BP 105/67
--- NOTE | 2019-11-15 19:30 | NUR ---
VOLLEYBALL REFEREE 1 NO SIGNIFICANT CHANGE IN PATIENT CONDITION, NO SOB, NO ACUTE RESPIRATORY DISTRESS . BED LOCKED AND LOWEST POSITION CALL LIGHT WITH IN REACH ALL SAFETY MEASURE IMPLEMENTED PER HOSPITAL POLICY.
--- NOTE | 2019-11-15 19:41 | NUR ---
TRACK RIDER NOTES PATIENT A/O X4 . PATIENT IS ALERT ,ORIENTED AND COOPERATIVE WITH CARE .PATIENT IS ON O2 VIA NC @ 3L PATIENT SATURATING AT 95> NO SON, NO PAIN , NO ACUTE RESPIRATORY DISTRESS. PATIENT SKIN IS INTACT PATIENT HAS MICHAUD CATH YELLOW COLOR UYRINE . PATIENT HAS G20 IV ON R ARM PATIENT AND INTACT. NO SIGNS OF INFIKLTRATION. ON EXTERNAL MONITOR SR. NO SIGNS OF DISTRESS. BED LOCKED AND LOWEST POSITION CALL LIGHT WITH IN REACH ALL SAFETY MEASURE IMPLEMENTED PER HOSPITAL POLICY Addendum: 11/15/19 at 1945 by BERNADETTE SALOMON RN WRONG TIME
[2019-11-15 20:00] VITALS: BP 125/71
--- NOTE | 2019-11-15 20:00 | NUR ---
RN NOTES, PATIENT IN BED A/O X4, ABLE TO COMMUNICATE NEEDS AND CONCERNS, BREATHING EVEN AND UNLABORED, NO SOB/ACUTE DISTRESS NOTED, NSR IN TELE MONITOR WITH HR IN 80S AT THIS TIME, C/O GENERALIZED PAIN 03/11, PAIN MED GIVEN, PATIENT IS ON O2 VIA NC @ 3L PATIENT SATURATING AT 95% AT THIS TIME, IV ACCESS ON RIGHT FA 20G PATENT AND INTACT, NO SIGNS OF INFILTRATION NOTED, BED LOCKED AND LOWEST POSITION CALL LIGHT WITH IN REACH, ALL SAFETY MEASURE IMPLEMENTED, WILL CONTINUE TO MONITOR CLOSELY.
[2019-11-15] MEDS: MAG HYDROX/AL HYDROX/SIMETH 30 ML UDC PO PRN (23:07)
[2019-11-16] MEDS: methylPREDNISolone SOD SUCC 125 MG/2ML VIAL IV SCH ×4 (02:47→18:07)
[2019-11-16] MEDS: HYDROCODONE/APAP 5/325MG 1 EACH TABLET PO PRN ×2 (03:14→21:37)
[2019-11-16 04:00] VITALS: BP 130/74
--- NOTE | 2019-11-16 06:59 | NUR ---
RN NOTES, PATIENT IN BED, SLEEPING AT THIS TIME, BREATHING EVEN AND UNLABORED, NO SOB/ACUTE DISTRESS NOTED AT THIS TIME, NO SIGNIFICANT CHANGE IN CONDITION DURING THE NIGHT, ALL NEEDS PROVIDED, SAFETY PRECAUTIONS IN PLACED, BED LOCKED, AND LOW POSITION, KEPT DRY AND CLEAN, CALL LIGHT WITHIN REACH, WILL ENDORSE CONTINUITY OF CARE TO ONCOMING NURSE.
[2019-11-16 07:57] LABS: HEMATOCRIT 42 % (39-51); HEMOGLOBIN 14.5 g/dL (13.5-17.5); LYMPHOCYTES # (AUTO) 0.9 /CMM (0.8-4.8); LYMPHOCYTES % (AUTO) 7.5 % (20.0-44.0); MEAN CORPUSCULAR HGB CONC 34 g/dl (31.0-36.0); MEAN CORPUSCULAR VOLUME 91 fL (80-96); MONOCYTES # (AUTO) 0.3 /CMM (0.1-1.30); MONOCYTES % (AUTO) 2.8 % (2.0-12.0); NEUTROPHILS # (AUTO) 10.3 /CMM (1.8-8.9); NEUTROPHILS % (AUTO) 89.7 % (43.0-81.0); PLATELET COUNT (AUTO) 140 /CMM (150-450); RED BLOOD CELL COUNT(AUTO) 4.65 MIL/uL (4.5-6.0); WHITE BLOOD COUNT (AUTO) 11.5 K/uL (4.3-11.0)
[2019-11-16 08:00] VITALS: BP 125/60
[2019-11-16 08:14] LABS: ALBUMIN 3.5 g/dL (3.4-5.0); BILIRUBIN,TOTAL 0.5 mg/dL (0.2-1.0); CALCIUM, SERUM 8.9 mg/dL (8.5-10.1); CREATININE 0.9 mg/dL (0.6-1.3); MAGNESIUM 2.2 mg/dL (1.8-2.4); PHOSPHORUS 4.3 mg/dL (2.5-4.9); TOTAL PROTEIN, SERUM 7.4 g/dL (6.4-8.2)
[2019-11-16] MEDS: BLOOD SUGAR DIAGNOSTIC 1 EACH STRIP IN SCH ×5 (08:21→22:45)
[2019-11-16] MEDS: INSULIN REGULAR, HUMAN 100 UNIT/ML 3 ML VIAL SQ PRN ×3 (08:34→18:06)
[2019-11-16] MEDS: FUROSEMIDE 40 MG/4 ML VIAL IV SCH (09:03)
[2019-11-16] MEDS: TAMSULOSIN 0.4 MG CAP.SR.24H PO SCH (09:03)
--- NOTE | 2019-11-16 10:00 | NUR ---
MS RN Notes Zofia Solomon MD notified that patient had no BM for two days. Bowel sounds hypoactive. Stated that he will place order for some laxatives to help patient have BM.
[2019-11-16] MEDS ORDERED: BISACODYL SUPP (10 MG) 10 MG/SUPP.RECT SUPP.RECT RC PRN (10:30)
[2019-11-16] MEDS ORDERED: LACTULOSE 10 G/15 ML UDC (PYXIS) PO PRN (10:30)
[2019-11-16 12:00] VITALS: BP 125/60
[2019-11-16] MEDS: POLYETHYLENE GLYCOL 3350 17 GM POWD.PACK PO SCH ×2 (12:46→21:37)
[2019-11-16] MEDS ORDERED: DEXTROSE 50%-WATER 50 ML DISP.SYRIN IV PRN (13:30)
[2019-11-16 16:00] VITALS: BP 127/80
--- NOTE | 2019-11-16 16:00 | NUR ---
MS RN Notes Patient BS re-check following critical lab 426mg/dL Zofia Solomon notified of critical lab. Verbal orders received to give 10 additional units of regular insulin, then to recheck at 1700 and . Patient is alert and oriented at this time. No other complaints noted.
--- NOTE | 2019-11-16 17:00 | NUR ---
CLOSING NOTES PATIENT IS RESTING IN HIS CHAIR WATCHING TV AT THIS TIME. NO SIGNS OF DISTRESS NOTED. SPOKE WITH CASE MANAGEMENT REGARDING FOLLOW UP WITH [employer] INSURANCE. PATIENT MADE PHONE CALL AT BEDSIDE TO UPDATE HIS INSURANCE COMPANY OF CURRENT ADDRESS IN [place]. ENDORSED THE NEED TO FOLLOW UP WITH BLOOD SUGAR TO MORTGAGE ORIGINATOR. DISCUSSED HIS TREND AND THAT HIS SLIDING SCALE WAS CHANGED TO AGGRESSIVE BY PHYSICIAN. MD IS AWARE OF BS IN THE 400S. CARE TO BE CONTINUED WITH MORTGAGE ORIGINATOR.
--- NOTE | 2019-11-16 17:00 | NUR ---
MS RN NOTES 12 UNITS OF INSULIN GIVEN FOR FOLLOW UP 1700 BS OF 290. NO CURRENT SIGNS OF DISTRESS. NO ACUTE EVENTS NOTED. WILL CONTINUE TO MONITOR.
[2019-11-16] MEDS: DOCUSATE SODIUM 100 MG CAPSULE PO SCH (17:55)
--- NOTE | 2019-11-16 19:40 | NUR ---
RN OPENING NOTES RECEIVED REPORT FROM DAYSHIFT RN. FOUND Pt AWAKE, SITTING UP IN CHAIR, WATCHING TV. Pt IS AMB. NO S/S OF ACUTE DISTRESS OR SOB NOTED. ON 3L O2 VIA NC. Pt IS A/OX3, VERBAL, ABLE TO MAKE NEEDS KNOWN; FARSI SPEAKING BUT UNDERSTANDS SOME IRISH. IV ACCESS ON RFA #20G, SL. SAFETY MEASURES IN PLACE. BED SIDE TABLE & CALL LIGHT WITHIN REACH. WILL CONTINUE TO MONITOR Pt's CONDITION AND SAFETY THROUGHOUT THE NIGHT.
[2019-11-16 20:00] VITALS: BP 134/77
[2019-11-16] MEDS: MAG HYDROX/AL HYDROX/SIMETH 30 ML UDC PO PRN (21:38)
--- NOTE | 2019-11-16 21:46 | NUR ---
MS RN NOTE PT C/O SEVER CONSTIPATION AND PAIN ALL OVER 610, LACTULOSE GIVEN FOR CONSTIPATION AND NORCO 5/325 1 TAB PO GIVEN FOR PAIN ORDERED. INFORMED NURSE VINCE TO FOLLOW UP.
[2019-11-16] MEDS: *INSULIN REGULAR(HUMULIN R)HUM 100 UNIT/ML VIAL SQ PRN (22:54)
--- NOTE | 2019-11-16 23:04 | NUR ---
RN NOTES HS ACCUCHECK BG 370. ADMINISTERED 10UN OF INSULIN PER SLIDING SCALE VIA RT DELTOID. Pt IS ASKING FOR SANDWICH BEFORE BEDTIME.
[2019-11-17] MEDS: diphenhydrAMINE HCL 25 MG CAPSULE PO PRN (00:13)
[2019-11-17] MEDS: methylPREDNISolone SOD SUCC 125 MG/2ML VIAL IV SCH ×4 (00:13→18:00)
[2019-11-17 04:00] VITALS: BP 162/73
--- NOTE | 2019-11-17 07:30 | NUR ---
RN OPENING NOTE: RECEIVED PATIENT IN BED THIS MORNING. NO ACUTE DISTRESS NOTED. PATIENT IS ON 3L O2 VIA NC, NO SIGNS OF RESPIRATORY DISTRESS NOTED. PATIENT C/O PAIN TO BACK AND CONSTIPATION. ALERT AND ORIENTED X3. #20 SL, C/D/I, FLUSHING WELL, NO SIGNS OF COMPLICATION NOTED. PATIENT HAS MICHAUD, DRAINING WELL. SAFETY MEASURES IMPLEMENTED, BED IN LOWEST POSITION, LOCKED, SIDE RAILS UP X2, CALL LIGHT WITHIN REACH. WILL CONTINUE TO MONITOR PATIENT FOR CHANGES.
--- NOTE | 2019-11-17 07:30 | NUR ---
RN CLOSING NOTES REPORT GIVEN TO DAYSHIFT RN. Pt IS ASLEEP IN BED, RESPIRATIONS EVEN AND UNLABORED. NO S/S OF ACUTE DISTRESS OR SOB NOTED DURING THE NIGHT. ALL NEEDS MET AND ATTENDED TO. MICHAUD CATHETER DRAINING WELL. SAFETY MEASURES IN PLACE.
[2019-11-17] MEDS: BLOOD SUGAR DIAGNOSTIC 1 EACH STRIP IN SCH ×4 (07:53→21:00)
[2019-11-17 08:00] VITALS: BP 119/65
[2019-11-17] MEDS: DOCUSATE SODIUM 100 MG CAPSULE PO SCH ×3 (08:11→16:17)
[2019-11-17] MEDS: TAMSULOSIN 0.4 MG CAP.SR.24H PO SCH (08:11)
[2019-11-17] MEDS: HYDROCODONE/APAP 5/325MG 1 EACH TABLET PO PRN ×2 (08:11→23:58)
[2019-11-17] MEDS: SENNOSIDES/DOCUSATE SODIUM 1 TAB TABLET PO SCH ×2 (08:11→08:52)
[2019-11-17] MEDS: INSULIN REGULAR, HUMAN 100 UNIT/ML 3 ML VIAL SQ PRN ×3 (08:15→17:38)
--- NOTE | 2019-11-17 09:57 | NUR ---
PATIENT IS NOT COOPERATIVE WITH PLAN OF CARE OR MEDICATION MANAGEMENT PERTAINING CONSTIPATION. PATIENT C/O CONSTIPATION AND REFUSED HIS COLACE AND SENNA. I EXPLAINED THE IMPORTANCE OF THE MEDICATIONS BUT PATIENT CONTINUES TO REFUSE. PATIENT COMPLAINED TO DR HARPER REGARDING HIS CONSTIPATION AND DR HARPER ORDERED ENEMA. ATTEMPTED TO GIVE PATIENT SUPPOSITORY PRIOR TO [facility]EMA BUT PATIENT REFUSED BOTH AND SAID THAT HE DOESN'T WANT ANYTHING GOING UP THERE. PATIENT KEEPS ASKING FOR SANDWICHES, CONTACTED KITCHEN BUT UNABLE TO GET ONE FOR HIM [facility] REGARDLESS OF THE CARE PROVIDED, PATIENT SEEMS UNHAPPY AND IS NOT WILLING TO COOPERATE WITH THE PLAN OF CARE.
[2019-11-17 16:00] VITALS: BP 130/72
--- NOTE | 2019-11-17 18:25 | NUR ---
RN CLOSING NOTE: PATIENT IS CURRENTLY SITTING IN CHAIR BEDSIDE. NO ACUTE DISTRESS NOTED. NO SIGNS OF RESPIRATORY DISTRESS NOTED. MICHAUD, DRAINING WELL. PATIENT CONTINUES TO REFUSE PRN MEDS FOR CONSTIPATION. SAFETY MEASURES IMPLEMENTED, BED IN LOWEST POSITION, LOCKED, SIDE RAILS UP X2, CALL LIGHT WITHIN REACH. WILL ENDORSE TO ONCOMING SHIFT RN FOR CONTINUITY OF CARE AND TO CONTINUE TO ENCOURAGE PRN MEDICATIONS FOR CONSTIPATION.
--- NOTE | 2019-11-17 19:35 | NUR ---
RN CLOSING NOTE, PATIENT AWAKE A/O X3, ABLE TO VERBALIZED NEEDS AND CONCERNS, SITTING ON THE CHAIR ON NC AT 3LPM, NO SOB/ACUTE DISTRESS NOTED AT THIS TIME, IV ACCESS IN RIGHT FA, REINFORCED DRESSING AT THIS TIME, MICHAUD IN PLACED PATENCY INTACT, YELLOW URINE DRAINING BY GRAVITY, SAFETY MEASURES IMPLEMENTED, BED LOCKED AND LOWEST POSITION, CALL LIGHT WITHIN REACH, WILL CONTINUE TO MONITOR CLOSELY.
[2019-11-17 20:00] VITALS: BP 147/74
[2019-11-17] MEDS: *INSULIN REGULAR(HUMULIN R)HUM 100 UNIT/ML VIAL SQ PRN (21:03)
[2019-11-17] MEDS: POLYETHYLENE GLYCOL 3350 17 GM POWD.PACK PO SCH (21:05)
[2019-11-18] MEDS: diphenhydrAMINE HCL 25 MG CAPSULE PO PRN (00:05)
[2019-11-18 04:00] VITALS: BP 130/76
[2019-11-18] MEDS: methylPREDNISolone SOD SUCC 125 MG/2ML VIAL IV SCH ×3 (06:22→12:03)
--- NOTE | 2019-11-18 07:10 | NUR ---
RN NOTES, PATIENT SLEEPING T THIS TIME, BUT AROUSES TO VERBAL STIMULI, BREATHING EVEN AND UNLABORED, NO S/S OF SOB/ACUTE ACUTE DISTRESS NOTED AT THIS TIME, NO SIGNIFICANT CHANGE IN CONDITION DURING THE NIGHT, MEDICATION ADMINISTERED ORDERED, BED LOCKED AND LOW POSITION, ALARM ON, WILL ENDORSE CONTINUITY OF CARE TO ONCOMING NURSE.
--- NOTE | 2019-11-18 07:15 | NUR ---
MS RN NOTES RECEIVED PATIENT IN BED ASLEEP, AROUSABLE TO VERBAL AND TACTILE STIMULI. HOB ELEVATED. NO SOB. DENIES ANY C/O PAIN NOR DISCOMFORT AT THIS TIME. RFA # 20 SL INTACT AND PATENT. BED IN LOWEST POSITION, LOCKED. BED ALARM ON. ABLE TO VERBALIZE NEEDS.
[2019-11-18 08:00] VITALS: BP_SYST 135; BP_SYST 136; BP_DIAS 74; BP_DIAS 80
[2019-11-18] MEDS: BLOOD SUGAR DIAGNOSTIC 1 EACH STRIP IN SCH ×2 (08:14→11:58)
[2019-11-18] MEDS: SENNOSIDES/DOCUSATE SODIUM 1 TAB TABLET PO SCH (08:47)
[2019-11-18] MEDS: DOCUSATE SODIUM 100 MG CAPSULE PO SCH (08:47)
[2019-11-18] MEDS: TAMSULOSIN 0.4 MG CAP.SR.24H PO SCH (08:47)
[2019-11-18] MEDS: INSULIN REGULAR, HUMAN 100 UNIT/ML 3 ML VIAL SQ PRN ×2 (08:51→12:02)
[2019-11-18] MEDS: HYDROCODONE/APAP 5/325MG 1 EACH TABLET PO PRN (09:04)
[2019-11-18] MEDS ORDERED: VALSARTAN 80 MG TABLET PO SCH (09:30)
[2019-11-18 10:08] VITALS: BP 131/65
[2019-11-18] MEDS ORDERED: FURO-145 PO (10:47)
[2019-11-18] MEDS ORDERED: VALS80TA2 PO (10:47)
--- NOTE | 2019-11-18 11:18 | NUR ---
Social service consult requested by Dr. Wallace for a home evaluation. Per MD notes and chart review, pt is a 74-year-old male with history of diabetes and coronary artery disease who presented to the emergency room for removal of his Bartlett catheter which was placed several days prior for urinary retention. He states that when he wants it taken out. He has not followed up with urology yet due to insurance issues. He had the Bartlett placed initially because he reported urinary dribbling and difficulty initiating urinary stream. He has been taking his Flomax as prescribed as well as finished course of antibiotics. CLAMPER and case management director Neftaly met with the pt bedside. Pt is alert and oriented x 4. Pt appears to be anxious about being discharged today. CLAMPER provided pt with active listening, validation of feelings and supportive counseling. Pt resides alone in a home. Pt is ambulatory with a steady gait. Pt informed CLAMPER he has an empty O2 tank at home, and wanted another one. Per MD, pt does not require O2 at this time. Per report, pt is breathing normally without an O2 tank at this time. CLAMPER to file an APS report so that a [facility] can assess pt's home. was updated with aforementioned information.
--- NOTE | 2019-11-18 14:11 | NUR ---
MS RN NOTES ALERT AND ORIENTED X4. NO S/S OF RESPIRATORY DISTRESS. DENIES ANY C/O PAIN NOR DISCOMFORT AT THIS TIME. AMBULATORY WITH CANE WITH STEADY GAIT. DISCHARGE INSTRUCTIONS, EDUCATION AND PACKET GIVEN TO PATIENT AND VERBALIZES UNDERSTANDING. IV ACCESS CATHETER REMOVED WITH CATHETER TIP INTACT WITH GAUZE DRESSING IN PLACE. ALL BELONGINGS ACCOUNTED FOR. PATIENT LEFT IN STABLE CONDITION VIA PRIVATE VEHICLE.
--- NOTE | 2019-11-18 14:39 | NUR ---
CRIPPLE WORKER filed APS report for home safety concerns. APS report ID #[id number]
== END 2019-11-18 14:11 | disposition home or self-care (01) | DRG 291 ==
LOC: ER 14:10 → TELE1 20:39 → MEDSG1 11-15 20:28
PROVIDERS: ADMIT Internal Medicine; ATTEND Internal Medicine
DX: I11.0 Hypertensive heart disease with heart failure (principal); E43 Unspecified severe protein-calorie malnutrition; J96.21 Acute and chronic respiratory failure with hypoxia; N39.0 Urinary tract infection, site not specified; J44.1 Chronic obstructive pulmonary disease with (acute) exacerbation; I50.33 Acute on chronic diastolic (congestive) heart failure; E11.40 Type 2 diabetes mellitus with diabetic neuropathy, unspecified; I48.0 Paroxysmal atrial fibrillation; Z86.73 Personal history of transient ischemic attack (TIA), and cerebral infarction without residual deficits; I25.10 Atherosclerotic heart disease of native coronary artery without angina pectoris; Z98.61 Coronary angioplasty status; N40.0 Benign prostatic hyperplasia without lower urinary tract symptoms; I25.2 Old myocardial infarction; E66.9 Obesity, unspecified; Z79.82 Long term (current) use of aspirin; Z79.84 Long term (current) use of oral hypoglycemic drugs; Z79.899 Other long term (current) drug therapy; Z79.01 Long term (current) use of anticoagulants; Z83.3 Family history of diabetes mellitus; Z86.718 Personal history of other venous thrombosis and embolism; G47.33 Obstructive sleep apnea (adult) (pediatric)
CPT/HCPCS: 36415; 71045-TC; 80048-TC; 80053-TC; 80061-TC; 80076-TC; 81000-TC; 82947-TC; 82962-TC; 83735-TC; 83880; 84100-TC; 84484-TC; 85025-TC; 87081-TC; 93307-TC; 93970-TC; G0378; J1815; J1940; J2930; Q0163

== ENCOUNTER 2021-07-01 12:49 | Inpatient (IN) | payer OTHER ==
[~2021-07-01] VITALS: Ht 162.6 cm; Wt 92.5 kg
[~2021-07-01 12:49] MED LIST changes: -ASPI-1169 PO; -ATOR10TA PO; +DIPH50CA4 PO; +FURO-145 PO; -LOSA50TA3 PO; -METF-440 PO; -PRED50TA PO; -RIVA10TA PO; +TAMS-12 PO; +VALS80TA2 PO
--- NOTE | 2021-07-01 13:25 | NUR ---
COVID/FLU SWAB DONE AND SENT
[2021-07-01] MEDS ORDERED: DEXAMETHASONE SOD PHOSPHATE 6 MG in IV D5W 50 ML IV ONE (13:30)
[2021-07-01] MEDS ORDERED: DEXAMETHASONE SOD PHOSPHATE 10 MG/ML VIAL ONE (13:33)
[2021-07-01 13:42] LABS: BASOPHILS % (AUTO) 0.1 % (0.0-2.0); EOSINOPHILS % (AUTO) 0.5 % (0.0-6.0); HEMATOCRIT 37 % (39-51); HEMOGLOBIN 12.4 g/dL (13.5-17.5); LYMPHOCYTES # (AUTO) 0.8 K/uL (0.8-4.8); LYMPHOCYTES % (AUTO) 8.3 % (20.0-44.0); MEAN CORPUSCULAR HGB CONC 33 g/dl (31.0-36.0); MEAN CORPUSCULAR VOLUME 95 fL (80-96); MONOCYTES # (AUTO) 0.9 K/uL (0.1-1.30); MONOCYTES % (AUTO) 9.5 % (2.0-12.0); NEUTROPHILS # (AUTO) 7.6 K/uL (1.8-8.9); NEUTROPHILS % (AUTO) 81.6 % (43.0-81.0); PLATELET COUNT (AUTO) 142 K/uL (150-450); RED BLOOD CELL COUNT(AUTO) 3.93 MIL/uL (4.5-6.0); WHITE BLOOD COUNT (AUTO) 9.3 K/uL (4.3-11.0)
[2021-07-01] MEDS ORDERED: PIPERACILLIN /TAZOBACTAM 3.375 G in IV D5W 50 ML IV ONE (14:00)
--- NOTE | 2021-07-01 14:12 | NUR ---
SHANTANU ADULT EDUCATION INSTRUCTOR FROM [facility] [phone]
[2021-07-01] MEDS ORDERED: DEXAMETHASONE SOD PHOSPHATE 10 MG/ML VIAL IV ONE (14:30)
[2021-07-01 14:42] LABS: C-REACTIVE PROTEIN 13.4 mg/dL (0.0-0.9)
[2021-07-01] MEDS ORDERED: GABA300C PO (14:47)
[2021-07-01] MEDS ORDERED: METF-441 PO (14:47)
[2021-07-01] MEDS ORDERED: GLIP5TAB13 PO (14:47)
[2021-07-01] MEDS ORDERED: FURO20TA4 PO (14:47)
[2021-07-01] MEDS ORDERED: VALS40TA12 PO (14:47)
[2021-07-01] MEDS ORDERED: PANT40TA49 PO (14:47)
[2021-07-01] MEDS ORDERED: ATOR40TA PO (14:47)
[2021-07-01] MEDS ORDERED: ISOS30TA86 PO (14:47)
[2021-07-01] MEDS ORDERED: CELE100C98 PO (14:47)
--- NOTE | 2021-07-01 14:57 | NUR ---
DR. CARDOZO FROM [facility] SPEAKING WITH DR. HUGGINS.
--- NOTE | 2021-07-01 15:02 | NUR ---
CALLED DR. ORTIZ, SPEAKING WITH DR. HUGGINS.
[2021-07-01 15:03] LABS: ALBUMIN 3.2 g/dL (3.4-5.0); BILIRUBIN,TOTAL 1.4 mg/dL (0.2-1.0); CALCIUM, SERUM 8.7 mg/dL (8.5-10.1); CREATININE 0.9 mg/dL (0.6-1.3); POTASSIUM 4.3 mmol/L (3.5-5.1)
--- NOTE | 2021-07-01 15:25 | NUR ---
DR. BOONE, [facility] QUALITY ENGINEER MEDICAL DEVICE SPEAKING WITH DR. HUGGINS
[2021-07-01] MEDS ORDERED: ENOXAPARIN SODIUM 100 MG/ML DISP.SYRIN SQ ONE ×2 (15:30)
[2021-07-01] MEDS ORDERED: ASPIRIN 81 MG TAB.CHEW PO ONE (15:30)
[2021-07-01] MEDS ORDERED: ASPIRIN 81 MG TAB.CHEW ONE (15:30)
[2021-07-01] MEDS ORDERED: LEVOFLOXACIN (250MG) 250 MG TABLET PO SCH ×3 (16:00)
[2021-07-01] MEDS ORDERED: IPRATROPIUM NEB FS 0.5 MG/2.5 ML AMPUL.NEB NEB PRN ×3 (16:00)
[2021-07-01] MEDS ORDERED: DEXAMETHASONE 1 MG TABLET PO SCH ×3 (16:00)
[2021-07-01] MEDS ORDERED: *INSULIN REGULAR(HUMULIN R)HUM 100 UNIT/ML VIAL SQ PRN ×2 (16:00)
[2021-07-01] MEDS ORDERED: DEXTROSE 50%-WATER 50 ML DISP.SYRIN IV PRN ×3 (16:00)
[2021-07-01] MEDS ORDERED: INSULIN REGULAR, HUMAN 100 UNIT/ML 3 ML VIAL SQ PRN ×2 (16:00)
[2021-07-01] MEDS ORDERED: ALBUTEROL FS 2.5 MG/0.5 ML VIAL.NEB NEB PRN ×3 (16:00)
[2021-07-01] MEDS ORDERED: GABAPENTIN 300 MG CAPSULE PO SCH (17:00)
[2021-07-01] MEDS ORDERED: glipiZIDE 5 MG TABLET PO SCH (17:00)
[2021-07-01] MEDS ORDERED: CELECOXIB 100 MG CAPSULE PO SCH (17:00)
[2021-07-01] MEDS ORDERED: METFORMIN 850 MG TABLET PO SCH (17:00)
[2021-07-01] MEDS ORDERED: BLOOD SUGAR DIAGNOSTIC 1 EACH STRIP VI SCH ×3 (17:30)
--- NOTE | 2021-07-01 18:04 | NUR ---
ROOM 107
--- NOTE | 2021-07-01 19:31 | NUR ---
PT AWAKE AND ALERT IN BED BREATHING EVEN AND UNLABORED CALL LIGHT WITHIN REACH
--- NOTE | 2021-07-01 19:49 | NUR ---
ZEKE PLATT TO JULIENNE ENCARNACION
--- NOTE | 2021-07-01 20:26 | NUR ---
PATIENT TRANSFERRED UNDER ACLS
[2021-07-01 21:00] VITALS: BP 111/69
--- NOTE | 2021-07-01 21:00 | NUR ---
RN NOTE RECEIVED A 76 YEAR OLD MALE FROM ER. PATIENT IS ALERT AND ORIENTED X4. ABLE TO MAKE NEEDS KNOWN. BREATHING EVEN AND UNLABORED. CURRENTLY ON 4L/NC WITH SATURATION OF 96 PERCENT. NO SOB NOTED. NOTED WITH COUGH. HOB ELEVATED 35 DEGREES. ON TELEMETRY, WITH SINUS RHYTHM OF 68 BPM. SKIN IS WARM AND DRY TO TOUCH. AFEBRILE AT THIS TIME. VITAL SIGNS WNL. NOTED WITH RIGHT DORSAL HAND 20G. PATENT. PATIENT ABLE TO AMBULATE TO THE RESTROOM WITH ASSIST. PROVIDED URINAL. KEPT CLEAN AND DRY. KEPT LOCKED, IN LOW POSITION. CALL LIGHT WITHIN REACH.
--- NOTE | 2021-07-01 21:50 | NUR ---
RN NOTE PATIENT WITH NON-ADMINISTERED MEDICATIONS. CONTACTED SVITLANA, FROM ER, WHO GAVE REPORT EARLIER. STATES THAT THE MEDICATIONS FROM 1700 AND 1600 WERE NOT ADMINISTERED AND NEEDS TO BE ADMINISTERED. CHARGE NURSE INFORMED. CONTACTED AFTER HOURS PHARMACY FOR TIME CHANGE.
[2021-07-01] MEDS: ATORVASTATIN 40 MG TABLET PO SCH (22:07)
[2021-07-01] MEDS: BLOOD SUGAR DIAGNOSTIC 1 EACH STRIP VI SCH (22:20)
[2021-07-01] MEDS: LEVOFLOXACIN (250MG) 250 MG TABLET PO SCH (22:31)
[2021-07-01] MEDS: CELECOXIB 100 MG CAPSULE PO SCH (22:31)
[2021-07-01] MEDS: METFORMIN 850 MG TABLET PO SCH (22:31)
[2021-07-01] MEDS: glipiZIDE 5 MG TABLET PO SCH (22:31)
[2021-07-01] MEDS: GABAPENTIN 300 MG CAPSULE PO SCH (22:33)
[2021-07-01] MEDS: *INSULIN REGULAR(HUMULIN R)HUM 100 UNIT/ML VIAL SQ PRN (22:35)
[2021-07-02] VITALS: BP 109/50
[2021-07-02 04:00] VITALS: BP 114/53
--- NOTE | 2021-07-02 07:32 | NUR ---
RN OPENING NOTE PATIENT RECEIVED IN BED, ASLEEP. PATIENT ON 4L O2 NC WITH NO SIGNS OF LABORED BREATHING AT THIS TIME. TELE MONITOR ON. RIGHT HAND 20G PIV IN PLACE, PATENT WITH NO SIGNS OF INFILTRATION. NO SIGNS OF DISTRESS NOTED AT THIS TIME. BED LOCKED AND IN LOWEST POSITION, 2 SIDE RAILS UP, CALL LIGHT WITHIN REACH. WILL CONTINUE TO MONITOR.
[2021-07-02] MEDS: BLOOD SUGAR DIAGNOSTIC 1 EACH STRIP VI SCH ×4 (07:59→21:20)
[2021-07-02 08:00] VITALS: BP 115/61
[2021-07-02] MEDS ORDERED: ACETAMINOPHEN 325 MG TABLET PO PRN (08:30)
[2021-07-02] MEDS ORDERED: VALSARTAN 80 MG TABLET PO SCH (09:00)
[2021-07-02] MEDS: PANTOPRAZOLE 40 MG TABLET.DR PO SCH (09:00)
[2021-07-02] MEDS ORDERED: APIXABAN 5 MG TABLET PO SCH ×2 (09:00)
[2021-07-02] MEDS: HYDROCODONE/APAP 5/325MG TABLET PO PRN ×2 (09:01→13:06)
[2021-07-02] MEDS: ISOSORBIDE MONONITRATE (30MG) 30 MG TAB.SR.24H PO SCH (09:01)
[2021-07-02] MEDS: TAMSULOSIN 0.4 MG CAP.SR.24H PO SCH (09:01)
[2021-07-02] MEDS: METFORMIN 850 MG TABLET PO SCH ×2 (09:01→16:45)
[2021-07-02] MEDS: CELECOXIB 100 MG CAPSULE PO SCH ×2 (09:01→16:45)
[2021-07-02] MEDS: GABAPENTIN 300 MG CAPSULE PO SCH ×2 (09:01→16:45)
[2021-07-02] MEDS: glipiZIDE 5 MG TABLET PO SCH ×2 (09:01→16:45)
[2021-07-02] MEDS: APIXABAN 5 MG TABLET PO SCH ×2 (09:02→16:47)
[2021-07-02] MEDS: DEXAMETHASONE 4 MG TABLET PO SCH (09:21)
[2021-07-02 11:25] LABS: BASOPHILS % (AUTO) 0.1 % (0.0-2.0); EOSINOPHILS % (AUTO) 0.3 % (0.0-6.0); HEMATOCRIT 35 % (39-51); HEMOGLOBIN 11.5 g/dL (13.5-17.5); LYMPHOCYTES # (AUTO) 0.6 K/uL (0.8-4.8); LYMPHOCYTES % (AUTO) 6.3 % (20.0-44.0); MEAN CORPUSCULAR HGB CONC 33 g/dl (31.0-36.0); MEAN CORPUSCULAR VOLUME 95 fL (80-96); MONOCYTES # (AUTO) 0.9 K/uL (0.1-1.30); MONOCYTES % (AUTO) 9.6 % (2.0-12.0); NEUTROPHILS # (AUTO) 7.9 K/uL (1.8-8.9); NEUTROPHILS % (AUTO) 83.7 % (43.0-81.0); PLATELET COUNT (AUTO) 151 K/uL (150-450); RED BLOOD CELL COUNT(AUTO) 3.68 MIL/uL (4.5-6.0); WHITE BLOOD COUNT (AUTO) 9.5 K/uL (4.3-11.0)
[2021-07-02 12:00] VITALS: BP 97/57
[2021-07-02 12:20] LABS: CALCIUM, SERUM 8.4 mg/dL (8.5-10.1); CREATININE 0.9 mg/dL (0.6-1.3); POTASSIUM 4.3 mmol/L (3.5-5.1)
--- NOTE | 2021-07-02 15:50 | NUR ---
RN NOTE PATIENT'S BLOOD PRESSURE LOWERED TO 88/48. DR ORTIZ NOTIFIED. PATIENT PLACED IN [place] AND GIVEN 250CC NS BOLUS PER DR ORTIZ ORDER. BLOOD PRESSURE RAISED. PATIENT ENCOURAGED TO DRINK ORAL FLUID. WILL CONTINUE TO MONITOR.
[2021-07-02 16:00] VITALS: BP 91/58
[2021-07-02] MEDS ORDERED: IV NS 0.9% 250 ML IV ONE (16:00)
[2021-07-02] MEDS: INSULIN REGULAR, HUMAN 100 UNIT/ML 3 ML VIAL SQ PRN (17:45)
--- NOTE | 2021-07-02 18:38 | NUR ---
RN CLOSING NOTE PATIENT IN BED, AWAKE, A&OX4. PATIENT ON 4L O2 NC WITH NO SIGNS OF LABORED BREATHING AT THIS TIME. PATIENT ON TELE MONITOR. RIGHT HAND 20G PIV IN PLACE, PATENT WITH NO SIGNS OF INFILTRATION. NO SIGNS OF DISTRESS NOTED AT THIS TIME. BED LOCKED AND IN LOWEST POSITION, CALL LIGHT WITHIN REACH, 2 SIDE RAILS UP, ALL SAFETY MEASURES IMPLEMENTED. WILL ENDORSE TO MOLD BREAKER NURSE.
[2021-07-02 20:00] VITALS: BP 114/75
[2021-07-02] MEDS: ATORVASTATIN 40 MG TABLET PO SCH (21:20)
[2021-07-02] MEDS: LEVOFLOXACIN (250MG) 250 MG TABLET PO SCH (21:20)
[2021-07-02] MEDS: *INSULIN REGULAR(HUMULIN R)HUM 100 UNIT/ML VIAL SQ PRN (21:33)
[2021-07-03] VITALS: BP 92/48
[2021-07-03 04:00] VITALS: BP 103/61
--- NOTE | 2021-07-03 06:56 | NUR ---
RN NOTE NO SIGNIFICANT CHANGES DURING SHIFT. PATIENT ALERT AND ORIENTED X4. ABLE TO MAKE NEEDS KNOWN. ON 4L/MIN/NC, TOLERATING WELL. DRY COUGH NOTED. SKIN WARM AND DRY. AFEBRILE. ALL DUE MEDICATIONS ADMINISTERED. KEPT CLEAN AND DRY. BED LOW, IN LOCKED POSITION, CALL LIGHT WITHIN REACH.
--- NOTE | 2021-07-03 07:29 | NUR ---
RN OPENING NOTE RECEIVED PATIENT ASLEEP IN BED, EASY TO AROUSE. A/O X4, PT ABLE TO MAKE NEEDS KNOWN. PT ON 4L O2 VIA NC SATURATING AT 97%. NO S/S OF RESPIRATORY DISTRESS OR SOB NOTED. PT N TELE EXTERNAL MONITOR WITH SR READING. IV ACCESS RHAND#20, INTACT AND PATENT. SAFETY PRECAUTIONS IN PLACE: BED LOCKED IN LOW POSITION, HOB ELEVATED, SIDE RAILS UP X2, CALL LIGHT WITHIN REACH, BED ALARM ON. WILL CONTINUE TO MONITOR PATIENT
[2021-07-03] MEDS: BLOOD SUGAR DIAGNOSTIC 1 EACH STRIP VI SCH ×4 (07:45→21:08)
[2021-07-03 08:00] VITALS: BP 103/61
[2021-07-03] MEDS: HYDROCODONE/APAP 5/325MG TABLET PO PRN ×2 (08:23→21:09)
[2021-07-03] MEDS: DEXAMETHASONE 4 MG TABLET PO SCH (08:23)
[2021-07-03] MEDS: GABAPENTIN 300 MG CAPSULE PO SCH ×2 (08:23→16:31)
[2021-07-03] MEDS: METFORMIN 850 MG TABLET PO SCH ×2 (08:23→16:31)
[2021-07-03] MEDS: CELECOXIB 100 MG CAPSULE PO SCH ×2 (08:24→16:31)
[2021-07-03] MEDS: PANTOPRAZOLE 40 MG TABLET.DR PO SCH (08:24)
[2021-07-03] MEDS: TAMSULOSIN 0.4 MG CAP.SR.24H PO SCH (08:24)
[2021-07-03] MEDS: glipiZIDE 5 MG TABLET PO SCH ×2 (08:24→16:31)
[2021-07-03] MEDS: ISOSORBIDE MONONITRATE (30MG) 30 MG TAB.SR.24H PO SCH ×2 (08:24→09:00)
[2021-07-03] MEDS: APIXABAN 5 MG TABLET PO SCH ×2 (08:35→16:32)
[2021-07-03] MEDS: ASPIRIN EC 81 MG TABLET.DR PO SCH (11:37)
[2021-07-03 12:00] VITALS: BP 92/46
[2021-07-03 16:00] VITALS: BP 123/64
[2021-07-03] MEDS: *INSULIN REGULAR(HUMULIN R)HUM 100 UNIT/ML VIAL SQ PRN ×2 (16:41→21:56)
--- NOTE | 2021-07-03 18:48 | NUR ---
RN CLOSING NOTE PATIENT IS RESTING IN BED COMFORTABLY. NO SIGNS OR SYMPTOMS OF DISTRESS NOTED. BREATHING IS EVEN AND UNLABORED. NO SIGNIFICANT CHANGES THROUGHOUT SHIFT. SAFETY MEASURES MAINTAINED. CALL LIGHT IS WITHIN REACH. WILL ENDORSE CONTINUITY OF CARE TO ONCOMING SHIFT.
[2021-07-03 20:00] VITALS: BP 122/69
[2021-07-03] MEDS: ATORVASTATIN 40 MG TABLET PO SCH (21:08)
[2021-07-03] MEDS: METOPROLOL TARTRATE 25 MG TABLET PO SCH (21:08)
[2021-07-03] MEDS: LEVOFLOXACIN (250MG) 250 MG TABLET PO SCH (21:08)
--- NOTE | 2021-07-03 23:00 | NUR ---
RN NOTE: BLOOD SUGAR HS ACCUCHECK BLOOD SUGAR 109 NO COVERAGE NEEDED
[2021-07-04] VITALS (7 sets, daily range): BP systolic 102–138; BP diastolic 54–76
[2021-07-04] MEDS: HYDROCODONE/APAP 5/325MG TABLET PO PRN ×2 (04:59→20:03)
[2021-07-04 06:21] LABS: BASOPHILS % (AUTO) 0.1 % (0.0-2.0); EOSINOPHILS % (AUTO) 0.6 % (0.0-6.0); HEMATOCRIT 31 % (39-51); HEMOGLOBIN 10.5 g/dL (13.5-17.5); LYMPHOCYTES # (AUTO) 1.1 K/uL (0.8-4.8); MEAN CORPUSCULAR HGB CONC 34 g/dl (31.0-36.0); MEAN CORPUSCULAR VOLUME 95 fL (80-96); MONOCYTES # (AUTO) 0.8 K/uL (0.1-1.30); MONOCYTES % (AUTO) 10.5 % (2.0-12.0); NEUTROPHILS # (AUTO) 5.9 K/uL (1.8-8.9); NEUTROPHILS % (AUTO) 74.8 % (43.0-81.0); PLATELET COUNT (AUTO) 167 K/uL (150-450); RED BLOOD CELL COUNT(AUTO) 3.32 MIL/uL (4.5-6.0); WHITE BLOOD COUNT (AUTO) 7.9 K/uL (4.3-11.0)
--- NOTE | 2021-07-04 06:41 | NUR ---
RN CLOSING NOTE PT REMAINS ON 4L, A/O X4, NO RESP DISTRESS NOTED. PT PCR POSITIVE RESULT. CONTACT DROPLET PRECAUTIONS IN PLACE. PT IV REMAINS INTACT. ALL NEEDS ATTENDED THROUGHOUT NIGHT. AFEBRILE. PT DENIES PAIN AT THIS TIME. SAFETY MEASURES IN PLACE. HOB ELEVATED SIDE RAILS UP X2 BED LOCKED IN LOWEST POSITION, HYGIENE PRODUCTS PROVIDED, PT INDEPENDENT, LINENS CHANGED. WILL ENDORSE TO DAY SHIFT NURSE FOR CONTINUATION OF CARE
[2021-07-04 07:33] LABS: CALCIUM, SERUM 8.2 mg/dL (8.5-10.1); CREATININE 0.7 mg/dL (0.6-1.3); POTASSIUM 4.6 mmol/L (3.5-5.1)
[2021-07-04] MEDS: BLOOD SUGAR DIAGNOSTIC 1 EACH STRIP VI SCH ×4 (07:49→21:50)
--- NOTE | 2021-07-04 08:04 | NUR ---
RN OPENING NOTE- PT IN BED,. A/O X4, PT ABLE TO MAKE NEEDS KNOWN. PT ON 4L O2 VIA NC SATURATING AT 95%. NO S/S OF RESPIRATORY DISTRESS OR SOB NOTED. CHEST W WHEEZING AND RALES, DIMINISHED LOWER LOBES. PT N TELE EXTERNAL MONITOR WITH SR 70. IV ACCESS RT HAND#20, INTACT AND PATENT. SAFETY PRECAUTIONS IN PLACE: BED LOCKED IN LOW POSITION, HOB ELEVATED, SIDE RAILS UP X2, CALL LIGHT WITHIN REACH, BED ALARM ON. WILL CONTINUE TO MONITOR PATIENT
[2021-07-04] MEDS: TAMSULOSIN 0.4 MG CAP.SR.24H PO SCH (08:39)
[2021-07-04] MEDS: ISOSORBIDE MONONITRATE (30MG) 30 MG TAB.SR.24H PO SCH (08:39)
[2021-07-04] MEDS: PANTOPRAZOLE 40 MG TABLET.DR PO SCH (08:39)
[2021-07-04] MEDS: ASPIRIN EC 81 MG TABLET.DR PO SCH (08:40)
[2021-07-04] MEDS: GABAPENTIN 300 MG CAPSULE PO SCH ×2 (08:40→16:30)
[2021-07-04] MEDS: METOPROLOL TARTRATE 25 MG TABLET PO SCH ×2 (08:40→21:00)
[2021-07-04] MEDS: CELECOXIB 100 MG CAPSULE PO SCH ×2 (08:40→16:30)
[2021-07-04] MEDS: glipiZIDE 5 MG TABLET PO SCH ×2 (08:40→16:30)
[2021-07-04] MEDS: DEXAMETHASONE 4 MG TABLET PO SCH (08:41)
[2021-07-04] MEDS: APIXABAN 5 MG TABLET PO SCH ×2 (08:45→16:31)
[2021-07-04] MEDS: METFORMIN 850 MG TABLET PO SCH ×2 (08:50→16:30)
[2021-07-04] MEDS: INSULIN REGULAR, HUMAN 100 UNIT/ML 3 ML VIAL SQ PRN (17:26)
--- NOTE | 2021-07-04 18:30 | NUR ---
RN CLOSING NOTE- PT IN BED LABILE AT TIMES TODAY BUT ULTIMATELY REDIRECTABLE. PO INTAKE GOOD,M VOIDING IN URINAL AND BR. OXYGEN AT 3LPM VIA NC W 02SATS AT 94-96%. CHEST W RALES TO UPPER LOBES ON AUSCULTATION AND DIMINISHED THROUGHOUT LOWER LOBES. RT HAND HEPLOCK#20 PATENT / FLUSHED. EVALUATED CRISIS TEAM / ART SAW PT AND CLEARED FOR DC/TRANSFER. NEEDS ATTENDED. BED LOCKED IN PLACE, SIDE RAILS UP, CALL LIGHT IN REACH .
--- NOTE | 2021-07-04 20:21 | NUR ---
RN NOTE PATIENT ALERT AND ORIENTED X4, ABLE TO MAKE NEEDS KNOWN. ON O2 3L VIA NASAL CANNULA, O2 SAT 95% NO S/S OF RESPIRATORY DISTRESS. COMPLAINED OF GENERALIZED 7/10 PAIN AND REQUESTED FOR PAIN PILL, ADMINISTERED NORCO ORDERED. PCR POSITIVE, ON CONTACT DROPLET ISOLATION, PRECAUTIONS OBSERVED. IV ACCESS ON RIGHT HAND #20, PATENT AND INTACT. BED LOCKED AND IN LOWEST POSITION. CALL LIGHT WITHIN REACH. ALL NEEDS ANTICIPATED.
[2021-07-04] MEDS: ATORVASTATIN 40 MG TABLET PO SCH (21:40)
[2021-07-04] MEDS: LEVOFLOXACIN (250MG) 250 MG TABLET PO SCH (21:40)
[2021-07-04] MEDS: *INSULIN REGULAR(HUMULIN R)HUM 100 UNIT/ML VIAL SQ PRN (21:43)
[2021-07-05 04:20] VITALS: BP 122/65
[2021-07-05 04:50] VITALS: BP 122/65
--- NOTE | 2021-07-05 06:26 | NUR ---
RN NOTE PATIENT ALERT AND ORIENTED X4. ON O2 3L VIA NASAL CANNULA, O2 SAT 99% NO S/S OF RESPIRATORY DISTRESS. DENIES ANY PAIN AT THIS TIME. IV ACCESS ON RIGHT HAND #20, PATENT AND INTACT. ALL NEEDS ATTENDED PROMPTLY. BED LOCKED AND IN LOWEST POSITION. CALL LIGHT WITHIN REACH. WILL ENDORSE TO AM SHIFT.
[2021-07-05 06:48] LABS: EOSINOPHILS % (AUTO) 0.6 % (0.0-6.0); HEMATOCRIT 30 % (39-51); HEMOGLOBIN 10.2 g/dL (13.5-17.5); LYMPHOCYTES # (AUTO) 1.1 K/uL (0.8-4.8); LYMPHOCYTES % (AUTO) 14.6 % (20.0-44.0); MEAN CORPUSCULAR HGB CONC 34 g/dl (31.0-36.0); MEAN CORPUSCULAR VOLUME 95 fL (80-96); MONOCYTES # (AUTO) 0.8 K/uL (0.1-1.30); MONOCYTES % (AUTO) 10.8 % (2.0-12.0); NEUTROPHILS # (AUTO) 5.5 K/uL (1.8-8.9); PLATELET COUNT (AUTO) 170 K/uL (150-450); WHITE BLOOD COUNT (AUTO) 7.5 K/uL (4.3-11.0)
[2021-07-05 07:18] LABS: CALCIUM, SERUM 8.1 mg/dL (8.5-10.1); CREATININE 0.7 mg/dL (0.6-1.3); POTASSIUM 4.4 mmol/L (3.5-5.1)
--- NOTE | 2021-07-05 07:45 | NUR ---
RN NOTES RECEIVED PT AWAKE, ALERT IN BED IN SIDE LYING POSITION. PT IS ON 3L NC WITH NO S/SX OF ACUTE RESPIRATORY DISTRESS. PT HAS A R HAND 20 G FLUSHED, PATENT, WITH DRESSING IN TACT. SAFETY MEASURES IN PLACE WITH SIDE RAILS UP X2, BED IN LOWEST LOCKED POSITION AND CALL LIGHT WITHIN REACH.
[2021-07-05 07:56] LABS: C-REACTIVE PROTEIN 1.7 mg/dL (0.0-0.9)
[2021-07-05 08:00] VITALS: BP 120/70
[2021-07-05] MEDS: glipiZIDE 5 MG TABLET PO SCH ×2 (08:29→17:28)
[2021-07-05] MEDS: BLOOD SUGAR DIAGNOSTIC 1 EACH STRIP VI SCH ×4 (08:29→21:06)
[2021-07-05] MEDS: GABAPENTIN 300 MG CAPSULE PO SCH ×2 (08:29→17:28)
[2021-07-05] MEDS: METFORMIN 850 MG TABLET PO SCH ×2 (08:29→17:28)
[2021-07-05] MEDS: TAMSULOSIN 0.4 MG CAP.SR.24H PO SCH (08:29)
[2021-07-05] MEDS: DEXAMETHASONE 4 MG TABLET PO SCH (08:30)
[2021-07-05] MEDS: METOPROLOL TARTRATE 25 MG TABLET PO SCH ×2 (08:30→21:00)
[2021-07-05] MEDS: CELECOXIB 100 MG CAPSULE PO SCH ×2 (08:30→17:28)
[2021-07-05] MEDS: ASPIRIN EC 81 MG TABLET.DR PO SCH (08:30)
[2021-07-05] MEDS: ISOSORBIDE MONONITRATE (30MG) 30 MG TAB.SR.24H PO SCH (08:30)
[2021-07-05] MEDS: PANTOPRAZOLE 40 MG TABLET.DR PO SCH (08:31)
[2021-07-05] MEDS: APIXABAN 5 MG TABLET PO SCH ×2 (08:34→17:30)
--- NOTE | 2021-07-05 11:00 | NUR ---
RN NOTE PT AGITATED ABOUT POSSIBLE DISCHARGE STATING "I PAY TAXES, I DESERVE TREATMENT".
--- NOTE | 2021-07-05 11:45 | NUR ---
RN NOTE PT COMPLAINING OF HEADACHE 11/09. MEDICATED WITH PRN ACETAMINOPHEN.
--- NOTE | 2021-07-05 12:43 | NUR ---
SS Consult: SS consult for homeless. Pt. Is a 76-year-old male. Per pt., he was brought to hospital by ambulance. Pt. is currently positive for COVID-19. Pt. was oriented x3, and alert. During interview, pt., made appropriate eye-contact, and appeared well-groomed, but had hard of hearing. DAVE explored pt.s Hx of mental health and substance abuse. Pt. reported no Hx of mental health, SI/HI, denied AH/VH, paranoia or delusions. SW explored pt.s living situation. Per pt., he lives at home by himself [[address] [place] [id number], ]. Per pt., he is not homeless. Per pt., he reports having no adequate support. DAVE asked pt. if he wanted to change his [employer] insurance to Medicare, pt. accepted. DAVE called [employer] and spoke with Jeronimo. Jeronimo is notified and will let DAVE know if anything changes. Plan: DAVE contact [employer] and spoke with Jeronimo for insurance change. No resources needed at this time.
--- NOTE | 2021-07-05 14:30 | NUR ---
RN NOTE PT PULLED OUT IV ACCESS. REFUSED NEW ACCESS.
[2021-07-05] MEDS: HYDROCODONE/APAP 5/325MG TABLET PO PRN (15:34)
--- NOTE | 2021-07-05 15:35 | NUR ---
RN NOTE PT COMPLAINING OF HEADACHE 6/10 PAIN. MEDICATED WITH PRN NORCO.
[2021-07-05 16:00] VITALS: BP 109/58
--- NOTE | 2021-07-05 16:57 | NUR ---
RN NOTE RECEIVED CERTIFICATE OF MEDICAL NECESSITY FOR OXYGEN. WILL ENDORSE TO NEXT SHIFT TO OBTAIN MD SIGNATURE FOR CONTINUITY OF CARE.
--- NOTE | 2021-07-05 17:05 | NUR ---
RT ABG DONE PER MD ORDER. RESULTS GIVEN TO TYRESE WILSON RN. DOWNTIME PROCEDURES DONE, ABG RESULTS PLACED IN CHART.
[2021-07-05] MEDS: INSULIN REGULAR, HUMAN 100 UNIT/ML 3 ML VIAL SQ PRN (17:41)
--- NOTE | 2021-07-05 18:45 | NUR ---
RN CLOSING NOTE PT RESTING IN SEMI-FOWLERS POSITION ON 3L NC, WITH NO S/SX OF ACUTE RESPIRATORY DISTRESS AT THIS TIME. PT AT 100% OF ALL MEALS AND HAS BEEN PLEASANT/COOPERATIVE FOR THE LAST 2 HOURS. PT HAS NO IV ACCESS AND HAS REFUSED INSERTION, HOWEVER, NO IV MEDICATIONS CURRENTLY ON EMAR. SAFETY MEASURES IN PLACE WITH BED IN LOWEST LOCKED POSITION, SIDE RAILS UP X2, CALL LIGHT WITHIN REACH AND ALL NEEDS ATTENDED AT THIS TIME.
--- NOTE | 2021-07-05 19:30 | NUR ---
RN NOTE RECEIVED PATIENT IN BED. A/OX4. ON OXYGEN 3L/MIN VIA NASAL CANNULA. RESPIRATIONS ARE EVEN AND UNLABORED. NO S/S SOB NOTED. NO C/O PAIN AT THIS TIME. IN NO APPARENT DISTRESS. THERE IS NO IV ACCESS. ASKED PATIENT IF I CAN PLACE A NEW IV. PATIENT AGREED. BED IS LOW AND LOCKED, SIDE RIAL SUP X2, CALL LIGHT WITHIN REACH.
[2021-07-05 20:00] VITALS: BP 100/63
[2021-07-05] MEDS: ATORVASTATIN 40 MG TABLET PO SCH (21:05)
[2021-07-05] MEDS: *INSULIN REGULAR(HUMULIN R)HUM 100 UNIT/ML VIAL SQ PRN (21:23)
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
[2021-07-05] MEDS: MAG HYDROX/AL HYDROX/SIMETH 30 ML UDC PO PRN (23:46)
[2021-07-06 04:00] VITALS: BP 113/56
--- NOTE | 2021-07-06 06:47 | NUR ---
RN NOTE PATIENT RESTING IN BED. A/OX4. REMAINS ON OXYGEN 3L/MIN VIA NASAL CANNULA. NO REPS DISTRESS. MANAGED UPSET STOMACH WITH MAALOX. ATTENDED TO ALL PATIENT NEEDS. NO DISTRESS. IV IN RFA#20. BED REMAINS LOW AND LOCKED, SIDE RIAL SUP X2, CALL LIGHT WITHIN REACH. WILL ENDORSE TO ONCOMING SHIFT.
[2021-07-06 07:25] LABS: C-REACTIVE PROTEIN 1.2 mg/dL (0.0-0.9)
--- NOTE | 2021-07-06 07:40 | NUR ---
RN OPENING NOTE RECEIVED PT AWAKE IN BED IN SEMI-FOWLERS POSITION, WITH R FA 20G SALINE LOCK, FLUSHED, PATENT, WITH DRESSING IN TACT. BED IN LOWEST LOCKED POSITION, AND CALL LIGHT WITHIN REACH.
[2021-07-06] MEDS: BLOOD SUGAR DIAGNOSTIC 1 EACH STRIP VI SCH ×4 (07:56→21:30)
[2021-07-06 07:59] LABS: CALCIUM, SERUM 8.1 mg/dL (8.5-10.1); CREATININE 0.8 mg/dL (0.6-1.3); POTASSIUM 4.5 mmol/L (3.5-5.1)
[2021-07-06 08:00] VITALS: BP 122/62
[2021-07-06] MEDS: CELECOXIB 100 MG CAPSULE PO SCH ×2 (08:32→16:56)
[2021-07-06] MEDS: GABAPENTIN 300 MG CAPSULE PO SCH ×2 (08:32→16:55)
[2021-07-06] MEDS: METOPROLOL TARTRATE 25 MG TABLET PO SCH ×2 (08:33→21:00)
[2021-07-06] MEDS: glipiZIDE 5 MG TABLET PO SCH ×2 (08:34→16:56)
[2021-07-06] MEDS: ASPIRIN EC 81 MG TABLET.DR PO SCH (08:34)
[2021-07-06] MEDS: ISOSORBIDE MONONITRATE (30MG) 30 MG TAB.SR.24H PO SCH (08:34)
[2021-07-06] MEDS: PANTOPRAZOLE 40 MG TABLET.DR PO SCH (08:34)
[2021-07-06] MEDS: TAMSULOSIN 0.4 MG CAP.SR.24H PO SCH (08:35)
[2021-07-06] MEDS: METFORMIN 850 MG TABLET PO SCH ×2 (08:37→16:55)
[2021-07-06] MEDS: APIXABAN 5 MG TABLET PO SCH ×2 (08:38→16:55)
[2021-07-06] MEDS ORDERED: DEXAMETHASONE 4 MG TABLET PO SCH (09:00)
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
[2021-07-06] MEDS: MAG HYDROX/AL HYDROX/SIMETH 30 ML UDC PO PRN ×2 (10:57→16:56)
--- NOTE | 2021-07-06 11:50 | NUR ---
RN NOTE PT COMPLAINING OF CHEST PAIN, EKG AND TROPONIN ORDERED PER MD.
[2021-07-06 16:00] VITALS: BP 98/60
--- NOTE | 2021-07-06 16:00 | NUR ---
RN NOTE PT TROPONIN TRENDING DOWN. 0.059 @1200 AND 0.048 @1600.
[2021-07-06] MEDS: INSULIN REGULAR, HUMAN 100 UNIT/ML 3 ML VIAL SQ PRN (17:09)
--- NOTE | 2021-07-06 18:56 | NUR ---
RN NOTE PT RESTING COMFORTABLY IN THE CHAIR ON 2L NC WITH NO S/SX OF ACUTE RESPIRATORY DISTRESS. PT ATE 100% OF ALL MEALS. SAFETY MEASURES IN PLACE WITH BED IN LOWEST LOCKED POSITION, CALL LIGHT WITHIN REACH AND ALL NEEDS ATTENDED AT THIS TIME.
--- NOTE | 2021-07-06 19:00 | NUR ---
RN OPENING NOTES RECEIVED REPORT FROM MORNING NURSE. PATIENT A/0 X3. ON OXYGEN INHALATION AT 2LPM VIA NC TOLERATED WELL WITH 98% SATURATION. NO SOB, NO DISTRESS NOTED. WITH IV ACCESS AT R FA G#20 PATENT FLUSHES WELL. SAFETY MEASURES IN PLACE. HOB ELEVATED. BED ON LOWEST LOCKED POSITION, CALL LIGHT WITHIN REACH. WILL CONTINUE TO MONITOR THE PATIENT.
[2021-07-06] MEDS: ATORVASTATIN 40 MG TABLET PO SCH (21:24)
[2021-07-06] MEDS: *INSULIN REGULAR(HUMULIN R)HUM 100 UNIT/ML VIAL SQ PRN (21:33)
[2021-07-07] VITALS: BP 93/49
--- NOTE | 2021-07-07 06:36 | NUR ---
RN CLOSING NOTES PATIENT REMAINS STABLE THE WHOLE SHIFT NO SIGNIFICANT CHANGES IN HEALTH CONDITION. NO SOB, NO DISTRESS NOTED. STILL ON OXYGEN INHALATION AT 2LPM VIA NC TOLERATED WELL. ALL SAFETY MEASURES IN PLACE. HOB ELEVATED, BED IN LOWEST POSITION AND LOCKED. CALL LIGHT WITHIN REACH. ALL NEEDS ATTENDED PROMPTLY. ENDORSED
[2021-07-07] MEDS: BLOOD SUGAR DIAGNOSTIC 1 EACH STRIP VI SCH ×4 (07:46→21:01)
--- NOTE | 2021-07-07 07:53 | NUR ---
MS RN OPENING NOTES RECEIVED PATIENT IN BED, AWAKE, A/O X3. PATIENT ON OXYGEN THERAPY AT 2 LPM VIA NASAL CANNULA; BREATHING EVEN AND UNLABORED, NO SOB NOTED. NO COMPLAINS OF PAIN. IV ACCESS ON RFA G # 20; SL. SAFETY PRECAUTIONS IN PLACE; BED IN LOW POSITION AND LOCKED; RAILS UP x2, CALL LIGHT WITHIN REACH. WILL CONTINUE TO MONITOR PATIENT.
[2021-07-07] MEDS: ISOSORBIDE MONONITRATE (30MG) 30 MG TAB.SR.24H PO SCH (08:11)
[2021-07-07] MEDS: METOPROLOL TARTRATE 25 MG TABLET PO SCH ×2 (08:13→20:47)
[2021-07-07] MEDS: TAMSULOSIN 0.4 MG CAP.SR.24H PO SCH (08:13)
[2021-07-07] MEDS: ASPIRIN EC 81 MG TABLET.DR PO SCH (08:14)
[2021-07-07] MEDS: CELECOXIB 100 MG CAPSULE PO SCH ×2 (08:14→17:47)
[2021-07-07] MEDS: glipiZIDE 5 MG TABLET PO SCH ×2 (08:14→17:47)
[2021-07-07] MEDS: PANTOPRAZOLE 40 MG TABLET.DR PO SCH (08:14)
[2021-07-07] MEDS: APIXABAN 5 MG TABLET PO SCH ×2 (08:16→17:47)
[2021-07-07] MEDS: DEXAMETHASONE 4 MG TABLET PO SCH (08:16)
[2021-07-07] MEDS: METFORMIN 850 MG TABLET PO SCH ×2 (08:16→17:47)
[2021-07-07] MEDS: GABAPENTIN 300 MG CAPSULE PO SCH ×2 (08:18→17:47)
[2021-07-07] MEDS: INSULIN REGULAR, HUMAN 100 UNIT/ML 3 ML VIAL SQ PRN ×2 (08:20→17:48)
[2021-07-07 10:14] VITALS: BP 108/66
[2021-07-07] MEDS: HYDROCODONE/APAP 5/325MG TABLET PO PRN ×2 (13:17→22:54)
[2021-07-07 16:04] VITALS: BP 97/50
--- NOTE | 2021-07-07 19:03 | NUR ---
MS RN CLOSING NOTES PATIENT IN CHAIR, AWAKE, A/O X3. PATIENT ON OXYGEN THERAPY AT 1 LPM VIA NASAL CANNULA; BREATHING EVEN AND UNLABORED, NO SOB NOTED. NO COMPLAINS OF PAIN DURING SHIFT. IV ACCESS ON RFA G # 20; SL. ALL NEEDS ATTENDED DURING THE DAY. SAFETY PRECAUTIONS IN PLACE; BED IN LOW POSITION AND LOCKED; RAILS UP x2, CALL LIGHT WITHIN REACH. WILL ENDORSE TO SATELLITE DISH TECHNICIAN NURSE TO [place].
--- NOTE | 2021-07-07 19:30 | NUR ---
RN NOTE RECEIVED PATIENT IN BED, AO X 4, IN NO S/SX OF ACUTE DISTRESS AT THIS TIME. RESPIRATIONS EVEN AND UNLABORED, SATURATION AT 95% ON 1 LPM VIA NC, HR IS 74. NOTED IV SITE AT RFA 20G, PATENT AND FLUSHING WELL, NO S/S OF INFECTION OR INFILTRATION. PATIENT IS AMBULATORY WITH ASSISTIVE DEVICE, FRONT WHEELED WALKER AT BEDSIDE. SAFETY MEASURES IMPLEMENTED. PATIENT BED ALARM IS ON. HEAD OF BED ELEVATED. BED IS LOCKED, IN LOWEST POSITION AND SIDE RAILS UP. CALL LIGHT WITHIN REACH OF THE PATIENT. WILL CONTINUE TO MONITOR AND REASSESS FOR ANY CHANGES.
[2021-07-07 20:00] VITALS: BP 111/64
[2021-07-07] MEDS: ATORVASTATIN 40 MG TABLET PO SCH (21:01)
[2021-07-07] MEDS: *INSULIN REGULAR(HUMULIN R)HUM 100 UNIT/ML VIAL SQ PRN (21:03)
[2021-07-08] MEDS ORDERED: KETOROLAC TROMETHAMINE INJ 30 MG/ML VIAL ONE (00:59)
[2021-07-08] MEDS: HYDROCODONE/APAP 5/325MG TABLET PO PRN ×3 (03:38→22:08)
[2021-07-08 04:00] VITALS: BP 119/57
--- NOTE | 2021-07-08 07:56 | NUR ---
MS/RN OPENING NOTES RECEIVED PATIENT ON BED AWAKE ALERT AND ORIENTED X3. PATIENT IS ON 1 L OXYGEN VIA NASAL CANNULA TOLERATING WELL. PATIENT IN NO APPARENT RESPIRATORY DISTRESS NOTED. NO COMPLAINED OF PAIN NOTED AT THIS TIME. WILL CONTINUE TO MONITOR.
[2021-07-08 08:00] VITALS: BP 151/84
[2021-07-08] MEDS: CELECOXIB 100 MG CAPSULE PO SCH ×2 (08:41→16:38)
[2021-07-08] MEDS: BLOOD SUGAR DIAGNOSTIC 1 EACH STRIP VI SCH ×4 (08:41→21:07)
[2021-07-08] MEDS: GABAPENTIN 300 MG CAPSULE PO SCH ×2 (08:41→16:36)
[2021-07-08] MEDS: glipiZIDE 5 MG TABLET PO SCH ×2 (08:41→16:38)
[2021-07-08] MEDS: METFORMIN 850 MG TABLET PO SCH ×2 (08:42→16:37)
[2021-07-08] MEDS: PANTOPRAZOLE 40 MG TABLET.DR PO SCH (08:42)
[2021-07-08] MEDS: ASPIRIN EC 81 MG TABLET.DR PO SCH (08:42)
[2021-07-08] MEDS: TAMSULOSIN 0.4 MG CAP.SR.24H PO SCH (08:42)
[2021-07-08] MEDS: DEXAMETHASONE 4 MG TABLET PO SCH (08:44)
[2021-07-08] MEDS: APIXABAN 5 MG TABLET PO SCH ×2 (08:45→16:38)
[2021-07-08] MEDS: METOPROLOL TARTRATE 25 MG TABLET PO SCH ×2 (08:47→21:07)
[2021-07-08] MEDS: ISOSORBIDE MONONITRATE (30MG) 30 MG TAB.SR.24H PO SCH (08:47)
[2021-07-08] MEDS ORDERED: ALBU2.5V13 NEB (09:03)
[2021-07-08] MEDS ORDERED: METO25TA20 PO (09:03)
[2021-07-08] MEDS ORDERED: APIX5TAB PO (09:03)
[2021-07-08] MEDS ORDERED: Aspirin Ec PO (09:03)
--- NOTE | 2021-07-08 09:19 | NUR ---
MS/RN NOTES DR. ORTIZ ORDER PATIENT NEED TO GET COVID 19 VACCINE IN 2 WEEKS. NOTED AND CARRIED OUT. PATIENT WAS AWARE.
--- NOTE | 2021-07-08 12:01 | NUR ---
MS/RN NOTES 1000 PATIENT IS ON 1 L OXYGEN VIA NASAL CANNULA TITRATE TO ROOM AIR PATIENT SA02 95% SATURATING NO SOB WAS NOTED. WILL CONTINUE TO MONITOR.
--- NOTE | 2021-07-08 16:38 | NUR ---
MS/RN NOTES PATIENT WAS SEEN BY DR. COYNE PER PER SOON CHARGE NURSE.
--- NOTE | 2021-07-08 16:45 | NUR ---
MS/RN NOTES PATIENT IS FOR DISCHARGE TODAY, PATIENT REFUSED TO LEAVE, PATIENT WANT TO GET THE COVID 19 VACCINE BEFORE HE LEAVE EXPLAINED THAT HE NEEDS TO GET THE COVID 19 VACCINE IN [address] JACOBS, EXPLAINED THE RISK AND BENEFITS, PATIENTS WAS COURSING AND YELLING TO THE NURSES. DR. JACOBS AND SOON CHARGE NURSE WAS AWARE.
[2021-07-08] MEDS: INSULIN REGULAR, HUMAN 100 UNIT/ML 3 ML VIAL SQ PRN (17:23)
--- NOTE | 2021-07-08 18:51 | NUR ---
MS/RN CLOSING NOTES PATIENT IS ON BED AWAKE ALERT AND ORIENTED X3-4. PATIENT IS ON ROOM AIR SATURATION 93%. PATIENT IN NO APPARENT RESPIRATORY DISTRESS NOTED. NO COMPLAINED OF PAIN NOTED AT THIS TIME. IV ACCESS AT RIGHT FOREARM #20G PATENT AND INTACT. SEEN AND EXAMINED BY MD WITH ORDERS MADE AND CARRIED OUT ALL DUE MEDICATIONS WAS GIVEN. SAFETY PRECAUTIONS WAS IN PLACED. BED IN LOWEST POSITION AND LOCKED. SIDERAILS UP X2. CALL LIGHT WITHIN REACH. WILL ENDORSED TO MILL CONTROL OPERATOR FOR [place].
--- NOTE | 2021-07-08 19:00 | NUR ---
RN NOTE RECEIVED PATIENT IN BED, AO X 4, IN NO S/SX OF ACUTE DISTRESS AT THIS TIME. RESPIRATIONS EVEN AND UNLABORED, SATURATION AT 97% ON 1 LPM VIA NC, HR IS 74. NOTED IV SITE AT RFA 20G, PATENT AND FLUSHING WELL, NO S/S OF INFECTION OR INFILTRATION. PATIENT IS AMBULATORY WITH FWW. SAFETY MEASURES IMPLEMENTED. PATIENT BED ALARM IS ON. HEAD OF BED ELEVATED. BED IS LOCKED, IN LOWEST POSITION AND SIDE RAILS UP. CALL LIGHT WITHIN REACH OF THE PATIENT. WILL CONTINUE TO MONITOR AND REASSESS FOR ANY CHANGES.
[2021-07-08 20:00] VITALS: BP 117/57
[2021-07-08] MEDS: ATORVASTATIN 40 MG TABLET PO SCH (21:06)
--- NOTE | 2021-07-08 21:11 | NUR ---
RN NOTES very upset, yelling and screaming, getting short of breath asking for the paper he signed for regarding his oxygen. Explained to him paper not in the chart, will check with CM in am but does not want to wait. Wants the "cylinder" oxygen that he signed for or the paperwork to be torn bec he wants to remove his signature. Called Eric, nursing tufting supervisor and made her aware of the situation. Called James WRIGHT ([phone]) and left ABBY's call back number. Patient made aware.
[2021-07-08] MEDS: *INSULIN REGULAR(HUMULIN R)HUM 100 UNIT/ML VIAL SQ PRN (21:12)
[2021-07-09 04:00] VITALS: BP 117/57
[2021-07-09] MEDS: MAG HYDROX/AL HYDROX/SIMETH 30 ML UDC PO PRN (05:04)
[2021-07-09] MEDS: HYDROCODONE/APAP 5/325MG TABLET PO PRN (05:31)
--- NOTE | 2021-07-09 07:18 | NUR ---
RN NOTE PATIENT IS IN BED WITH HOB AT SEMI FOWLERS POSITION. PATIENT IS ON 1L NC WITH NO SIGNS OF LABORED BREATHING. PATIENT IS AOX4. RFA 20G IS PATENT AND INTACT. BED IS LOCKED IN THE LOWEST POSITION, 3 GUARD RAILS RAISED, CALL MAHARAJ WITHIN REACH, AND ALL HOSPITAL SAFETY PRECAUTIONS ARE BEING FOLLOWED. WILL CONTINUE TO MONITOR THROUGHOUT SHIFT.
[2021-07-09] MEDS ORDERED: ALBUTEROL SULFATE INH 18 GM HFA.AER.AD IH PRN (07:30)
[2021-07-09] MEDS: BLOOD SUGAR DIAGNOSTIC 1 EACH STRIP VI SCH ×4 (07:39→21:00)
[2021-07-09 08:00] VITALS: BP 139/71
[2021-07-09] MEDS ORDERED: FLUTICASONE/SALMETEROL DISKUS IH SCH (09:00)
[2021-07-09] MEDS: glipiZIDE 5 MG TABLET PO SCH ×2 (09:10→16:38)
[2021-07-09] MEDS: METFORMIN 850 MG TABLET PO SCH ×2 (09:11→16:38)
[2021-07-09] MEDS: PANTOPRAZOLE 40 MG TABLET.DR PO SCH (09:11)
[2021-07-09] MEDS: GABAPENTIN 300 MG CAPSULE PO SCH ×2 (09:11→16:38)
[2021-07-09] MEDS: CELECOXIB 100 MG CAPSULE PO SCH ×2 (09:11→16:38)
[2021-07-09] MEDS: METOPROLOL TARTRATE 25 MG TABLET PO SCH ×2 (09:11→21:05)
[2021-07-09] MEDS: ISOSORBIDE MONONITRATE (30MG) 30 MG TAB.SR.24H PO SCH (09:12)
[2021-07-09] MEDS: ASPIRIN EC 81 MG TABLET.DR PO SCH (09:12)
[2021-07-09] MEDS: TAMSULOSIN 0.4 MG CAP.SR.24H PO SCH (09:12)
[2021-07-09] MEDS: APIXABAN 5 MG TABLET PO SCH ×2 (09:13→16:46)
[2021-07-09] MEDS: FLUTICASONE/VILANTEROL 1 EACH BLST.W.DEV IH SCH (09:19)
[2021-07-09] MEDS: *INSULIN REGULAR(HUMULIN R)HUM 100 UNIT/ML VIAL SQ PRN ×2 (11:52→21:02)
[2021-07-09] MEDS: INSULIN REGULAR, HUMAN 100 UNIT/ML 3 ML VIAL SQ PRN (16:52)
--- NOTE | 2021-07-09 18:52 | NUR ---
RN NOTE PATIENT IS IN BED WITH HOB AT SEMI FOWLERS POSITION. PATIENT IS ON 1L NC WITH NO SIGNS OF LABORED BREATHING. PATIENT IS AOX4. RFA 20G IS PATENT AND INTACT. BED IS LOCKED IN THE LOWEST POSITION, 3 GUARD RAILS RAISED, CALL MAHARAJ WITHIN REACH, AND ALL HOSPITAL SAFETY PRECAUTIONS ARE BEING FOLLOWED. ALL DUE MEDS GIVEN AND PATIENT REMAINED STABLE THROUGHOUT SHIFT. WILL ENDORSE TO PASTEURIZING SUPERVISOR RN.
--- NOTE | 2021-07-09 19:30 | NUR ---
RN NOTES RECEIVED REPORT FROM MORNING NURSE. PATIENT IN CHAIR A/OX4 NO DISTRESS, NO SOB. WITH OXYGEN INHALATION AT 1L VIA NC TOLERATED WELL. WITH IV ACCESS ON RFA G#20 PATENT FLUSHES WELL. HOB ELEVATED, ALL SAFETY7 MEASURES IN PLACE. BED ON LOWEST LOCKED POSITION. CALL LIGHT WITHIN REACH. WILL CONTINUE TO MONITOR
[2021-07-09 20:00] VITALS: BP 102/50
[2021-07-09 20:34] VITALS: BP 102/50
[2021-07-09] MEDS: ATORVASTATIN 40 MG TABLET PO SCH (21:04)
--- NOTE | 2021-07-10 06:34 | NUR ---
RN NOTES PATIENT REMAINS STABLE THE WHOLE SHIFT. NO DISTRESS, NO SOB, NO CHANGES IN HEALTH CONDITION. ALL DUE MEDS GIVEN ORDERED. ALL NEEDS ATTENDED PROMPTLY. HOB ELEVATED, ALL SAFETY MEASURES IN PLACE AT ALL TIMES. CALL LIGHT WITHIN REACH. ENDORSED.
--- NOTE | 2021-07-10 07:30 | NUR ---
MS/RN OPENING NOTES RECEIVED PATIENT IN BED AWAKE ALERT AND ORIENTED X3. PATIENT IS ON 1 L OXYGEN VIA NASAL CANNULA TOLERATING WELL. WITH NO APPARENT RESPIRATORY DISTRESS NOTED. NO COMPLAINED OF PAIN NOTED AT THIS TIME. WILL CONTINUE TO MONITOR.
[2021-07-10] MEDS: BLOOD SUGAR DIAGNOSTIC 1 EACH STRIP VI SCH ×4 (07:52→21:28)
[2021-07-10 08:15] VITALS: BP 114/46
[2021-07-10] MEDS: glipiZIDE 5 MG TABLET PO SCH ×2 (08:29→16:29)
[2021-07-10] MEDS: GABAPENTIN 300 MG CAPSULE PO SCH ×2 (08:30→16:29)
[2021-07-10] MEDS: TAMSULOSIN 0.4 MG CAP.SR.24H PO SCH (08:30)
[2021-07-10] MEDS: PANTOPRAZOLE 40 MG TABLET.DR PO SCH (08:31)
[2021-07-10] MEDS: METFORMIN 850 MG TABLET PO SCH ×2 (08:31→16:29)
[2021-07-10] MEDS: METOPROLOL TARTRATE 25 MG TABLET PO SCH ×2 (08:31→21:00)
[2021-07-10] MEDS: ISOSORBIDE MONONITRATE (30MG) 30 MG TAB.SR.24H PO SCH (08:32)
[2021-07-10] MEDS: ASPIRIN EC 81 MG TABLET.DR PO SCH (08:32)
[2021-07-10] MEDS: CELECOXIB 100 MG CAPSULE PO SCH ×2 (08:32→16:30)
[2021-07-10 09:12] LABS: BASOPHILS % (AUTO) 0.3 % (0.0-2.0); EOSINOPHILS % (AUTO) 0.4 % (0.0-6.0); HEMATOCRIT 34 % (39-51); HEMOGLOBIN 11.1 g/dL (13.5-17.5); LYMPHOCYTES % (AUTO) 18.9 % (20.0-44.0); MEAN CORPUSCULAR HGB CONC 33 g/dl (31.0-36.0); MEAN CORPUSCULAR VOLUME 96 fL (80-96); MONOCYTES # (AUTO) 0.7 K/uL (0.1-1.30); MONOCYTES % (AUTO) 6.3 % (2.0-12.0); NEUTROPHILS # (AUTO) 7.7 K/uL (1.8-8.9); NEUTROPHILS % (AUTO) 74.1 % (43.0-81.0); PLATELET COUNT (AUTO) 215 K/uL (150-450); RED BLOOD CELL COUNT(AUTO) 3.53 MIL/uL (4.5-6.0); WHITE BLOOD COUNT (AUTO) 10.4 K/uL (4.3-11.0)
--- NOTE | 2021-07-10 09:30 | NUR ---
MS RN NOTES PER DOCTOR ANGEL REMOVE NASAL CANULA 2L/MIN AND MONITOR, WILL COLLECT RAPID COVID ORDERED
[2021-07-10] MEDS: INSULIN REGULAR, HUMAN 100 UNIT/ML 3 ML VIAL SQ PRN ×2 (09:55→17:47)
[2021-07-10] MEDS: FLUTICASONE/VILANTEROL 1 EACH BLST.W.DEV IH SCH (10:30)
[2021-07-10 10:36] LABS: CALCIUM, SERUM 8.5 mg/dL (8.5-10.1); CREATININE 0.9 mg/dL (0.6-1.3); POTASSIUM 4.4 mmol/L (3.5-5.1)
[2021-07-10] MEDS: APIXABAN 5 MG TABLET PO SCH ×2 (10:36→16:30)
--- NOTE | 2021-07-10 12:00 | NUR ---
RN NOTE PATIENT ON ROOM AIR TOLERATING WELL.
[2021-07-10] MEDS: *INSULIN REGULAR(HUMULIN R)HUM 100 UNIT/ML VIAL SQ PRN ×2 (14:48→21:40)
[2021-07-10] MEDS ORDERED: DOCUSATE SODIUM 100 MG CAPSULE PO PRN (18:00)
--- NOTE | 2021-07-10 18:34 | NUR ---
RN CLOSING NOTES PATIENT IS ON BED AWAKE ALERT AND ORIENTED X3-4. PATIENT IS ON ROOM AIR SATURATION 95%. PATIENT IN NO APPARENT RESPIRATORY DISTRESS NOTED. WALKER AT BED SIDE TO BE BROUGHT HOME BY THE PATIENT, NO COMPLAINED OF PAIN NOTED AT THIS TIME. ABG ORDER FOR TOMORROW MORNING, IV ACCESS AT RIGHT FOREARM #20G PATENT AND INTACT. ALL NEEDS MET AND MEDICATIONS GIVEN ORDERED, SAFETY PRECAUTIONS WAS IN PLACED. BED IN LOWEST POSITION AND LOCKED. CALL LIGHT WITHIN REACH. WILL ENDORSED TO PROTEIN CHEMIST
--- NOTE | 2021-07-10 20:14 | NUR ---
RN NOTE RECEIVED PATIENT ON BEDSIDE CHAIR. AWAKE, ALERT, AND VERBALLY RESPONSIVE. AOX4. ABLE TO MAKE NEEDS KNOWN. BREATHING EVEN AND UNLABORED. NO SOB NOTED. CURRENTLY ON ROOM AIR WITH SATURATION OF 94 PERCENT. NO SOB NOTED. NO COUGH/CONGESTION NOTED. STATES HE IS FEELING FINE. DENIES CHEST PAIN. SKIN WARM AND DRY. DENIES CONSTIPATION. NOTED WITH RFA 20G. PATENT. PATIENT WITH ABG TOMORROW. ALL NEEDS ATTENDED. BED LOW, IN LOCKED POSITION. CALL LIGHT WITHIN REACH.
[2021-07-10] MEDS: ATORVASTATIN 40 MG TABLET PO SCH (21:28)
[2021-07-10 22:00] VITALS: BP 95/46
[2021-07-11 04:00] VITALS: BP 124/65
[2021-07-11] MEDS: BLOOD SUGAR DIAGNOSTIC 1 EACH STRIP VI SCH ×4 (07:30→22:11)
[2021-07-11] MEDS: GABAPENTIN 300 MG CAPSULE PO SCH ×2 (08:03→16:33)
[2021-07-11] MEDS: ISOSORBIDE MONONITRATE (30MG) 30 MG TAB.SR.24H PO SCH (08:03)
[2021-07-11] MEDS: APIXABAN 5 MG TABLET PO SCH ×2 (08:04→16:35)
[2021-07-11] MEDS: METFORMIN 850 MG TABLET PO SCH ×2 (08:05→16:36)
[2021-07-11] MEDS: PANTOPRAZOLE 40 MG TABLET.DR PO SCH (08:05)
[2021-07-11] MEDS: ASPIRIN EC 81 MG TABLET.DR PO SCH (08:05)
[2021-07-11] MEDS: TAMSULOSIN 0.4 MG CAP.SR.24H PO SCH (08:05)
[2021-07-11] MEDS: CELECOXIB 100 MG CAPSULE PO SCH ×2 (08:05→16:33)
[2021-07-11] MEDS: METOPROLOL TARTRATE 25 MG TABLET PO SCH ×2 (08:06→21:52)
[2021-07-11] MEDS: glipiZIDE 5 MG TABLET PO SCH ×2 (08:09→16:33)
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
[2021-07-11] MEDS: FLUTICASONE/VILANTEROL 1 EACH BLST.W.DEV IH SCH (09:00)
[2021-07-11 10:02] LABS: ABG BASE EXCESS 6.9 mmol/L; ABG PCO2 56.3 mmHg (35.0-45.0); ABG PH 7.389 (7.350-7.450); ABG PO2 57.2 mmHg (75.0-100.0); COHb 0.6 % (0.5-1.5); MetHb 0.2 % (0.0-1.5); SITE, ABG Right Radial; VENT MODE, BG room air
[2021-07-11 12:00] VITALS: BP 128/70
--- NOTE | 2021-07-11 18:35 | NUR ---
EXPLAINED HIS APPEAL WAS DENIED AND ASKED IF HE HAD A PLAN ONCE D/C FROM HOSPITAL, HE STATED HIS MEDI CARE AND MEDI CAID WOULD PAY FOR HOSPITAL FOR 15 DAYS AND HE SAYS HE HAS 6 MORE DAYS TO STAY HERE AND RECEIVE CARE AND HE WANTS HIS ROAST BEEF MASHED POTATOES AND BROCOLI BEFORE HE LEAVES AND THEN HE HAS A PLANE TICKET TO GO TO [place] TO STAY WITH HIS SON, HE SAYS HE IS FLYING OUT OF [facility] AND ALREADY HAS HIS TICKET BUT COULD NOT GIVE ME FLIGHT NAME NOR NUMBER NOR DATE OF FLIGHT SO HE IS CLEARLY IN DESPERATE NEED OF A PLACE TO STAY AT THIS TIME, ENCOURAGED HIM TO GET A PLAN TOGETHER SO THAT HE IS SAFE. WEB DESIGNER DEVELOPER IS AWARE OF SITUATION AND WORKING ON A D/C PLAN , WE HAVE A WALKER FOR HIM WHEN HE IS D/C FOR SAFETY.
--- NOTE | 2021-07-11 19:45 | NUR ---
RN NOTE PT RECEIVED SITTING IN CHAIR. PT IS ON 3L OF O2 VIA NC SHOWING NO S/S OF RESP DISTRESS. BREATHING EVEN AND UNLABORED. NO SIGNS OF RESP DISTRESS. PT IS A/OX4. ABLE TO AMBULATE. ON CCHO DIET. IV ACCESS NOTED ON RIGHT FA #20. LINE FLUSHED, PATENT, AND INTACT WITH NO S/SX OF INFILTRATION. ALL SAFETY MEASURES IMPLEMENTED. BED ALARM ON. BED LOCKED AND IN LOWEST POSITION. SIDE RAILS UP. CALL LIGHT WITHIN REACH. WILL CONTINUE TO MONITOR AND ASSESS FOR ANY CHANGES THROUGHOUT SHIFT.
[2021-07-11 20:00] VITALS: BP 106/54
[2021-07-11] MEDS: ATORVASTATIN 40 MG TABLET PO SCH (21:53)
[2021-07-11] MEDS: *INSULIN REGULAR(HUMULIN R)HUM 100 UNIT/ML VIAL SQ PRN (22:12)
[2021-07-12 04:00] VITALS: BP 111/48
[2021-07-12] MEDS: HYDROCODONE/APAP 5/325MG TABLET PO PRN (06:03)
--- NOTE | 2021-07-12 06:56 | NUR ---
RN NOTE PT IN BED RESTING. CURRENTLY ON 3L OF O2 VIA NC SHOWING NO S/S OF RESP DISTRESS. BREATHING EVEN AND UNLABORED. NO SIGNS OF RESP DISTRESS. PT IS A/OX4. ABLE TO AMBULATE. IV ACCESS ON RIGHT FA #20. LINE FLUSHED, PATENT, AND INTACT WITH NO S/SX OF INFILTRATION. ALL DUE MEDS GIVEN ORDERED. PT KEPT CLEAN AND COMFORTABLE. ALL SAFETY MEASURES IMPLEMENTED. BED ALARM ON. BED LOCKED AND IN LOWEST POSITION. SIDE RAILS UP. CALL LIGHT WITHIN REACH. WILL ENDORSE TO MORNING SHIFT RN FOR [place].
--- NOTE | 2021-07-12 07:30 | NUR ---
MS/RN OPENING NOTE RECEIVED PT IN BED RESTING. CURRENTLY ON 3L OF O2 VIA NC SHOWING NO S/S OF RESP DISTRESS. BREATHING EVEN AND UNLABORED. NO SIGNS OF RESP DISTRESS. PT IS A/OX4. ABLE TO AMBULATE. IV ACCESS ON RIGHT FA #20. LINE FLUSHED, PATENT, AND INTACT WITH NO S/SX OF INFILTRATION.SAFETY MEASURES IN PLACED. BED LOCKED AND IN LOWEST POSITION. SIDE RAILS UPX2. CALL LIGHT WITHIN REACH. WILL CONTINUE TO MONITOR.
[2021-07-12] MEDS: BLOOD SUGAR DIAGNOSTIC 1 EACH STRIP VI SCH ×5 (08:13→21:18)
--- NOTE | 2021-07-12 08:30 | NUR ---
MS/RN NOTES PATIENT REFUSED INSULIN COVERAGE FOR BS RESULT OF 165.
[2021-07-12] MEDS: METOPROLOL TARTRATE 25 MG TABLET PO SCH ×2 (09:00→21:09)
[2021-07-12] MEDS: ISOSORBIDE MONONITRATE (30MG) 30 MG TAB.SR.24H PO SCH (09:00)
[2021-07-12] MEDS: ASPIRIN EC 81 MG TABLET.DR PO SCH (09:11)
[2021-07-12] MEDS: CELECOXIB 100 MG CAPSULE PO SCH ×2 (09:11→16:12)
[2021-07-12] MEDS: METFORMIN 850 MG TABLET PO SCH ×2 (09:12→16:12)
[2021-07-12] MEDS: glipiZIDE 5 MG TABLET PO SCH ×2 (09:12→16:12)
[2021-07-12] MEDS: PANTOPRAZOLE 40 MG TABLET.DR PO SCH (09:12)
[2021-07-12] MEDS: TAMSULOSIN 0.4 MG CAP.SR.24H PO SCH (09:12)
[2021-07-12] MEDS: GABAPENTIN 300 MG CAPSULE PO SCH ×2 (09:12→16:12)
[2021-07-12] MEDS: APIXABAN 5 MG TABLET PO SCH ×2 (09:14→16:12)
[2021-07-12] MEDS: FLUTICASONE/VILANTEROL 1 EACH BLST.W.DEV IH SCH (09:17)
--- NOTE | 2021-07-12 09:18 | NUR ---
MS/RN NOTES- WITHHELD MEDS LOPRESSOR AND IMDUR PO WITHHELD DUE TO LOW BP AND HR OF 115/60, HR-51. WILL CONTINUE TO MONITOR.
[2021-07-12] MEDS ORDERED: POTA10TA PO (11:14)
[2021-07-12] MEDS ORDERED: FURO-145 PO (11:14)
--- NOTE | 2021-07-12 12:00 | NUR ---
MS/RN NOTES- REFUSED ACCUCHECK PATIENT REFUSED ACCUCHECK.
[2021-07-12] MEDS: FUROSEMIDE 20 MG TABLET PO SCH (12:59)
[2021-07-12 14:48] VITALS: BP 115/60
--- NOTE | 2021-07-12 15:20 | NUR ---
"SS Consult: Pt. is a 76-year-old French and Farsi speaking male who presents to the ER with SOB, per the EMR. SS consult requested for homelessness. Pt. requested a farsi trucking manager. ABBY nurse provided translation throughout the interview. Upon SS consult, pt. is A&O x4. Pt. appears unkempt. Pt. presents with an irritable mood and loud speech. SW explored pt.s social support. Pt. stated they had no friends or family. SW explored pt.s living situation. Per EMR, pt. reported that he left a SNF placement because it was too dirty. However, pt. told this SW that he has been residing at [[address] [place] [address], [address]]. SW explored pt.s financial status. Pt. stated he doesnt receive food stamps, GR, SSI or disability. 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 SW explored whether pt. is ambulatory. Pt. states he is ambulatory with front wheel walker. Pt. stated they are independent with their ADLs. SW explored pt.s emotional status. Pt. stated they are feeling depressed because they are in the hospital. Pt. stated he did not have a psychiatric diagnosis or see a psychiatrist regularly. Pt. denies visual and auditory hallucinations. Pt. denies SI/HI. Pt. denies any drug or alcohol use. Plan: Upon discharge, pt. stated he would like to return to [[address] [place] [address]]. The pt. stated his phone number is. SW spoke with CM and they may possibly have placement for pt. and waiting on O2. Noted. SW will remain available as needed. SW refused to sign homeless waiver and it was placed in the pt.'s chart. Resources provided include: Year-round shelters: [facility] [address] [place] [address] ; [facility] [address] [place] [address]; [place] [facility] [id number] [facility] [id number] Winter Shelters: [place] Provider: Jennifer of [place] Address: [facility] [place], [address] # of Beds: 47 Population Served: Alia TORRES 6 | [facility] Paula Guerra [place] Provider: [facility] Address: [address] [facility], [address] # of Beds: 66 Population Served: [facility] Lisa [place] Provider: First [facility] Serve Address: [address] [facility] [facility] [address] # of Beds: 56 Population Served: [facility] Sukhdeep [place] Provider: SSG[facility] Address: [address] [facility], [address] # of Beds: 49 Population Served: [facility] 8 | [place] Provider: First to Serve Address: [address] [facility], [address] # of Beds: 37 Population Served: [facility] Hygiene: [facility]: [address] [facility] ; [place] [facility] [address] [facility] ; [facility] [address] [facility] [place] . Food Resources: [place] [facility] at [facility]- [address] [facility]; Meet Each Need with Dignity ([facility]) [address] [facility]; [facility] Food [facility] [address] [facility]; [facility] [address] [facility] Mental Health resources provided: [facility] [address] [place] [address] ; [facility] [address] [facility] [address], [place] [address] ; Raquel Davila [facility] [address] [place] [address] ; [facility] [address] [place] [address] Healthcare Clinics: [facility] [address] [facility], [address] [place]. [place] ; [facility] [address] [facility] [address] [place] [address]; [facility] [place] [address] [facility] [phone]) [phone] Counseling--Outpatient [facility] [address] [facility], [place] [address] (Specializes in in-depth psychotherapy for emotional distress: anxiety, depression, interpersonal conflicts, life transitions, childhood abuse) [facility] [address] [place] [address] (Assist with solving problem marital difficulties, separation & divorce, aging parents, & grief, chronic & terminal illness) [facility] [address] [place] [address] (Deal with loss & grief, anxiety, marital difficulties) Homebound/Mental Health Services [address] [facility] [address] [place] [address] (Provide in-home mental services to people who are incapable of leaving their homes) [facility] for Needs of the Elderly Senior Service/[facility] [address] [facility] [place] [address] [facility] [address]. [place], [place] [id number] PSYCHIATRIC OUTPATIENT SERVICES [facility] Partial Hospitalization and Intensive Outpatient Program (Managed Care and [place] Only)[address] [facility]. [facility] [place] [phone] [facility] Partial Hospitalization and Outpatient [id number] [facility] [address] [place], [place] [phone] Critical access hospital Mental Health Center Ewl[address] [facility] [address] [place], [place] [phone] [facility] Partial Hospitalization and Outpatient Krgymsw77415 [place], [phone] Substance Abuse resources provided included: [facility] Substance Abuse Self-Helpline ([facility]) ; [facility]LP [address] [facility]. [place] [address] ; [facility] [address] [facility] [address] ; [facility] [address] [place] [facility] [address] ; [facility] [address] [facility] [address] ; [facility] 05[address] [facility] [address] ; [facility] [address] [place] [facility] [phone] ; [facility] Substance Abuse Helpline([facility])-[facility] ; [facility] ; [facility] [place]; [facility] [place]; [facility] [place]; [facility] Giovani Hidal[place]; [place]; [facility] [place]; [facility] [place]; [facility] [place]; Alcoholics Anonymous -SFV; Cv-Cldk-Dhuxieh ; Marijuana Anonymous -SFV; Narcotics Anonymous www.na.org; Addendum: 07/12/21 at 1526 by ALYSSA ACOSTA The pt. stated his phone number is [phone]."
[2021-07-12] MEDS: INSULIN REGULAR, HUMAN 100 UNIT/ML 3 ML VIAL SQ PRN (17:11)
--- NOTE | 2021-07-12 18:37 | NUR ---
unable to discharge still waiting for home oxygen,jamie mickey grayson.
--- NOTE | 2021-07-12 19:00 | NUR ---
MS/RN CLOSING NOTE PT SITTING IN THE CHAIR. STILL ON 3L OF O2 VIA NC SHOWING NO S/S OF RESP DISTRESS. BREATHING EVEN AND UNLABORED. NO SIGNS OF RESP DISTRESS. PT IS A/OX4. ABLE TO AMBULATE. IV ACCESS ON RIGHT FA #20. LINE FLUSHED, PATENT, AND INTACT WITH NO S/SX OF INFILTRATION. PATIENT IS MEDICALLY STABLE AND SHOULD BE READY FOR DC SOON. AWAITING PORTABLE OXYGEN TO BE DELIVERED TONIGHT. ALL NEEDS MET. CALL LIGHT WITHIN REACH. WILL ENDORSE TO THE NEXT SHIFT FOR [place].
--- NOTE | 2021-07-12 19:30 | NUR ---
RN NOTES RECEIVED PT FOR [place]. PATIENT IN NO S/SX OF ACUTE DISTRESS AT THIS TIME. WILL ENSURE SAFETY MEASURES WITHIN THE SHIFT. PATIENT BED ALARM IS ON. HEAD OF BED ELEVATED. BED IS LOCKED, IN LOWEST POSITION AND SIDE RAILS UP. CALL LIGHT WITHIN REACH OF THE PATIENT. APPLICABLE ISOLATION PRECAUTIONS IN PLACE. WILL CONTINUE TO MONITOR AND REASSESS FOR ANY CHANGES AND WILL CARRY OUT ANY ONGOING AND ACTIVE MD ORDER.
[2021-07-12 20:00] VITALS: BP 130/67
--- NOTE | 2021-07-12 20:12 | NUR ---
RN NOTES PORTABLE O2 DELIVERY RECEIVED AND HANDED TO PATIENT. PT DECIDED NOT TO LEAVE TONIGHT AND WILL LEAVE [place] MORNING. DR ORTIZ MADE AWARE AND ACKNOWLEDGED.
[2021-07-12] MEDS: ATORVASTATIN 40 MG TABLET PO SCH (21:08)
[2021-07-12] MEDS: *INSULIN REGULAR(HUMULIN R)HUM 100 UNIT/ML VIAL SQ PRN (21:20)
--- NOTE | 2021-07-12 21:45 | NUR ---
RN NOTES RECEIVED CALL FROM AMY FROM [facility], INFORMED HER THAT PT IS STILL HERE AND HAS NOT BEEN DISCHARGED AND DR ORTIZ AWARE ABOUT THIS. SHE ACKNOWLEDGED.
[2021-07-13 04:00] VITALS: BP 102/57
--- NOTE | 2021-07-13 06:55 | NUR ---
RN CLOSING NOTE: PATIENT REMAINS IN ROOM IN NO SIGNS OF RESPIRATORY DISTRESS, PATIENT STILL ON 3L OF O2 VIA NC;TOLERATING WELL SATURATING @ >95% SP02. SAFETY MEASURES IMPLEMENTED, BED IN LOWEST POSITION, LOCKED, SIDE RAILS UP, CALL LIGHT WITHIN REACH. ALL NEEDS AND ORDERS ADDRESSED DURING THE SHIFT. IV ACCESS MAINTAINED INTACT, SECURED AND FLUSHING WELL. ALL DUE MEDS GIVEN ORDERED & SCHEDULED ; PATIENT TOLERATED WELL. PATIENT KEPT CLEAN AND COMFORTABLE WITHIN THE SHIFT. PATIENT ENDORSED TO INCOMING SHIFT RN WITH STABLE VITAL SIGN AND FOR CONTINUITY OF CARE.
--- NOTE | 2021-07-13 07:28 | NUR ---
RN OPENING NOTE RECEIVED PATIENT SITTING UP IN BED, AWAKE, A/O X4. NO S/SX OF DISTRESS NOTED. PATIENT ON 3L O2 VIA NC SATURATING 97%. BREATHING IS EVEN AND UNLABORED; NO SOB NOTED. NO COMPLAINTS OF PAIN. IV ACCESS PATENT AND INTACT. SAFETY PRECAUTIONS IN PLACE; BED IN LOW POSITION AND LOCKED, SIDE RAILS UP X2, CALL LIGHT WITHIN REACH. WILL CONTINUE TO MONITOR PATIENT.
[2021-07-13] MEDS: *INSULIN REGULAR(HUMULIN R)HUM 100 UNIT/ML VIAL SQ PRN (07:49)
[2021-07-13] MEDS: BLOOD SUGAR DIAGNOSTIC 1 EACH STRIP VI SCH (07:50)
[2021-07-13] MEDS: GABAPENTIN 300 MG CAPSULE PO SCH (08:13)
[2021-07-13] MEDS: PANTOPRAZOLE 40 MG TABLET.DR PO SCH (08:13)
[2021-07-13] MEDS: ASPIRIN EC 81 MG TABLET.DR PO SCH (08:13)
[2021-07-13] MEDS: METFORMIN 850 MG TABLET PO SCH (08:13)
[2021-07-13] MEDS: FUROSEMIDE 20 MG TABLET PO SCH (08:13)
[2021-07-13] MEDS: TAMSULOSIN 0.4 MG CAP.SR.24H PO SCH (08:13)
[2021-07-13] MEDS: CELECOXIB 100 MG CAPSULE PO SCH (08:13)
[2021-07-13] MEDS: APIXABAN 5 MG TABLET PO SCH (08:14)
[2021-07-13] MEDS: glipiZIDE 5 MG TABLET PO SCH (08:14)
[2021-07-13 08:22] VITALS: BP 114/61
[2021-07-13] MEDS: METOPROLOL TARTRATE 25 MG TABLET PO SCH (08:22)
[2021-07-13] MEDS: ISOSORBIDE MONONITRATE (30MG) 30 MG TAB.SR.24H PO SCH (08:22)
[2021-07-13] MEDS: FLUTICASONE/VILANTEROL 1 EACH BLST.W.DEV IH SCH (08:37)
--- NOTE | 2021-07-13 10:35 | NUR ---
MS BINDING END STITCHER NOTE PATIENT WAS DISCHARGED WITH STABLE VITAL SIGNS. NO S/SX OF DISTRESS NOTED. IV ACCESS AND ID BAND REMOVED. ALL BELONGINGS RETURNED AND SIGNED FOR. PT REFUSED BODY PHOTOS. DISCHARGE INSTRUCTIONS REVIEWED;PT VERBALIZED UNDERSTANDING. PT LEFT UNIT VIA WHEELCHAIR. OBSERVE PATIENT GET INTO CAR AND DRIVE OFF FACILITY.
== END 2021-07-13 11:04 | disposition home or self-care (01) | DRG 177 ==
LOC: ER 12:51 → UNDOADMOB 18:04 → OBSVTOIN 18:04 → TRANSITION 18:04 → TELE1 19:33 → TRANSITION 19:33 → MEDSG1 07-04 08:32 → TELE1 07-04 08:32
PROVIDERS: ADMIT Internal Medicine; ATTEND Internal Medicine
DX: U07.1 COVID-19 (principal); J96.21 Acute and chronic respiratory failure with hypoxia; I21.4 Non-ST elevation (NSTEMI) myocardial infarction; J12.82 Pneumonia due to coronavirus disease 2019; J96.22 Acute and chronic respiratory failure with hypercapnia; J44.0 Chronic obstructive pulmonary disease with (acute) lower respiratory infection; Z86.73 Personal history of transient ischemic attack (TIA), and cerebral infarction without residual deficits; I48.0 Paroxysmal atrial fibrillation; I11.0 Hypertensive heart disease with heart failure; I50.9 Heart failure, unspecified; Z98.61 Coronary angioplasty status; I25.10 Atherosclerotic heart disease of native coronary artery without angina pectoris; Z79.899 Other long term (current) drug therapy; E78.5 Hyperlipidemia, unspecified; I27.81 Cor pulmonale (chronic); I27.29 Other secondary pulmonary hypertension; Z59.02 Unsheltered homelessness; Z83.3 Family history of diabetes mellitus; Z86.718 Personal history of other venous thrombosis and embolism; Z91.19 Patient's noncompliance with other medical treatment and regimen; N40.0 Benign prostatic hyperplasia without lower urinary tract symptoms; I25.2 Old myocardial infarction; M19.90 Unspecified osteoarthritis, unspecified site; Z87.891 Personal history of nicotine dependence; Z79.84 Long term (current) use of oral hypoglycemic drugs; D69.6 Thrombocytopenia, unspecified; D64.9 Anemia, unspecified; E66.9 Obesity, unspecified; Z68.35 Body mass index [BMI] 35.0-35.9, adult; E11.42 Type 2 diabetes mellitus with diabetic polyneuropathy; G47.33 Obstructive sleep apnea (adult) (pediatric)
CPT/HCPCS: 36415; 36600; 71045-TC; 80048-TC; 80053-TC; 82728-TC; 82803-TC; 82962-TC; 83605-TC; 83880; 84484-TC; 85025-TC; 85378-TC; 86140-TC; 87040-TC; 87081-TC; 93307-TC; 97116-TC; 97530-TC; A6403; G0378; J1100; J1650; J1815; J1885; J2543; J7050; J7060; J8540; U0003